=== PATIENT | male | born 1960 | race Caucasian/White ===

== ENCOUNTER 2021-12-10 07:54 | Inpatient (IN) | payer MEDICARE, OTHER, SELFPAY ==
[2021-12-10] MEDS ORDERED: Ondansetron ODT 4 MG TAB PO PRN (08:36)
[2021-12-10] MEDS ORDERED: Acetaminophen 325 MG TAB PO PRN (08:36)
[2021-12-10] MEDS ORDERED: Bisacodyl 5 MG TAB PO PRN (08:36)
[2021-12-10] MEDS ORDERED: Senokot S 8.6-50 MG TAB PO PRN (08:36)
[2021-12-10] MEDS ORDERED: Ondansetron PF 4 MG/2 ML Vial IVP PRN (08:36)
[2021-12-10] MEDS ORDERED: Lorazepam 2 MG/ML VIAL IM PRN (08:36)
[2021-12-10] MEDS ORDERED: Lorazepam 1 MG TAB PO PRN ×2 (08:36→14:57)
[2021-12-10] MEDS ORDERED: Electrolyte Replacement Protocol 1 EACH FS SCH (08:45)
[2021-12-10] MEDS ORDERED: HumaLOG 300 UNITS/3 ML VIAL SC PRN (08:52)
[2021-12-10] MEDS ORDERED: Dextrose 5% in Water 1,000 ML IV PRN (08:52)
[2021-12-10] MEDS ORDERED: Dextrose 50% Abboject 50 ML SYRINGE SLOW IVP PRN (08:52)
[2021-12-10 08:54] VITALS: BMI 18.3
[2021-12-10] MEDS ORDERED: Folic Acid 1 MG TAB PO SCH (09:00)
[2021-12-10] MEDS ORDERED: Nicotine 14 MG PATCH TD SCH (09:00)
[2021-12-10] MEDS ORDERED: Sodium Chloride 0.9% 1,000 ML IV SCH (09:15)
[2021-12-10 09:21] LABS: ALT (SGPT) 10 U/L (8-55); AST (SGOT) 14 U/L (5-34); Albumin 4.3 g/dL (3.4-4.8); Alcohol Less than 10 mg/dL (Less than 10); Alkaline Phosphatase 108 U/L (40-110); Anion Gap 17 mmol/L (10-20); BUN (Urea Nitrogen) 9 mg/dL (8.4-25.7); Bilirubin, Total 0.5 mg/dL (0.2-1.2); Calc. Creatinine Clearance 62 mL/min (70-130); Calcium 9.8 mg/dL (7.8-10.44); Carbon Dioxide 21 mmol/L (23-31); Chloride 93 mmol/L (98-107); Globulin 4.2 g/dL (2.4-3.5); Glucose 171 mg/dL (80-115); Magnesium 1.2 mg/dL (1.6-2.6); Phosphorus 3.4 mg/dL (2.3-4.7); Potassium 4.1 mmol/L (3.5-5.1); Protein, Total 8.5 g/dL (5.8-8.1); Sodium 127 mmol/L (136-145)
[2021-12-10] MEDS ORDERED: Nicotine 21 MG PATCH TD SCH (09:30)
[2021-12-10] MEDS ORDERED: Metoprolol Tartrate 50 MG TAB PO SCH (09:30)
[2021-12-10] MEDS ORDERED: LOSARTAN POTASSIUM 100 MG PO SCH (10:00)
[2021-12-10] MEDS: Enoxaparin Sodium 30 MG/0.3 ML SYRINGE SC SCH (10:55)
[2021-12-10] MEDS: Lorazepam 1 MG TAB PO SCH ×2 (10:57→16:28)
[2021-12-10] MEDS: Multivit, Therapeutic 1 TAB PO SCH (10:57)
[2021-12-10] MEDS: Thiamine HCl 200 MG/2 ML VIAL SLOW IVP SCH (10:57)
[2021-12-10 11:13] LABS: Iron 17 ug/dL (65-175); Iron Binding Capacity, Total 476 mcg/dL (261-462)
[2021-12-10 11:39] LABS: Ferritin 7.07 ng/mL (22-322)
[2021-12-10] MEDS: HumaLOG 300 UNITS/3 ML VIAL SC PRN ×2 (13:09→18:22)
[2021-12-10] MEDS: Labetalol HCl 100 MG/20 ML VIAL SLOW IVP PRN (13:11)
[2021-12-10] MEDS: Ferrous Sulfate 325 MG TAB PO SCH (18:22)
[2021-12-10 22:57] LABS: Amphetamine Not Detected (NotDetected); Barbiturates Screen Not Detected (NotDetected); Benzodiazepine Screen Not Detected (NotDetected); Cocaine Metabolite Screen Not Detected (NotDetected); Methadone Not Detected (NotDetected); Methamphetamine Not Detected (NotDetected); Opiate Screen Not Detected (NotDetected); Oxycodone Screen Not Detected (NotDetected); Phencyclidine (PCP) Not Detected (NotDetected); THC/Cannabinoid Screen Detected (NotDetected); Tricyclic Screen Not Detected (NotDetected)
[2021-12-11 04:55] LABS: #Basophils 0.1 thou/uL (0.0-0.2); #Eosinphils 0.1 thou/uL (0.0-0.7); #Monocytes 0.9 thou/uL (0.11-0.59); %Eosinophils 1.3 % (0.0-10.0); %Lymphocytes 21.7 % (21.0-51.0); %Monocytes 9.7 % (0.0-10.0); %Neutrophils 66.3 % (42.0-75.0); Mean Corpuscular HGB CONC 31.5 g/dL (32.0-36.0); Mean Corpuscular Hemoglobin 23.8 pg (27.0-31.0); Mean Corpuscular Volume 75.4 fL (78.0-98.0); Mean Platelet Volume 7.1 fL (7.4-10.4); Platelet Count 500 thou/uL (130-400); RBC Distribution Width 18.4 % (11.5-14.5); Red Blood Cell (RBC) Count 4.23 mill/uL (4.70-6.10); White Blood Cell (WBC) Count 9.1 thou/uL (4.8-10.8)
[2021-12-11 05:16] LABS: ALT (SGPT) 8 U/L (8-55); AST (SGOT) 18 U/L (5-34); Albumin 3.9 g/dL (3.4-4.8); Alkaline Phosphatase 96 U/L (40-110); Anion Gap 16 mmol/L (10-20); BUN (Urea Nitrogen) 20 mg/dL (8.4-25.7); Bilirubin, Total 0.5 mg/dL (0.2-1.2); Calc. Creatinine Clearance 52 mL/min (70-130); Calcium 9.6 mg/dL (7.8-10.44); Carbon Dioxide 22 mmol/L (23-31); Chloride 94 mmol/L (98-107); Glucose 159 mg/dL (80-115); Potassium 4.2 mmol/L (3.5-5.1); Protein, Total 7.9 g/dL (5.8-8.1); Sodium 128 mmol/L (136-145)
[2021-12-11] MEDS: HumaLOG 300 UNITS/3 ML VIAL SC PRN (05:55)
[2021-12-11] MEDS ORDERED: Lorazepam 1 MG TAB PO PRN (08:36)
[2021-12-11] MEDS ORDERED: Non-Formulary Item 1 EACH (Losartan Potassium [Losartan Potassium] 100 MG Tablet) PO SCH (09:00)
[2021-12-11] MEDS: Ferrous Sulfate 325 MG TAB PO SCH ×2 (10:19→17:55)
[2021-12-11] MEDS: Enoxaparin Sodium 30 MG/0.3 ML SYRINGE SC SCH (10:19)
[2021-12-11] MEDS: Multivit, Therapeutic 1 TAB PO SCH (10:20)
[2021-12-11] MEDS: Metoprolol Tartrate 50 MG TAB PO SCH (10:20)
[2021-12-11] MEDS: Sodium Chloride 1 GM TAB PO SCH ×3 (10:20→21:33)
[2021-12-11] MEDS: Losartan 25 MG TAB PO SCH (10:21)
[2021-12-11] MEDS: Folic Acid 1 MG TAB PO SCH (10:21)
[2021-12-11] MEDS: Nicotine 21 MG PATCH TD SCH (10:21)
[2021-12-11 11:00] LABS: Syphilis Antibody Nonreactive (Nonreactive); Syphilis Antibody Index 0.12 S/CO (<1.00 Non-Reactive)
[2021-12-11] MEDS: Thiamine HCl 200 MG/2 ML VIAL SLOW IVP SCH (17:55)
[2021-12-11] MEDS: Labetalol HCl 100 MG/20 ML VIAL SLOW IVP PRN (21:32)
[2021-12-11] MEDS ORDERED: Melatonin 3 MG TAB PO SCH (23:15)
[2021-12-12] MEDS: hydrALAZINE 20 MG/ML VIAL SLOW IVP PRN ×2 (04:31→16:32)
[2021-12-12 04:49] LABS: Anion Gap 15 mmol/L (10-20); BUN (Urea Nitrogen) 16 mg/dL (8.4-25.7); Calc. Creatinine Clearance 67 mL/min (70-130); Calcium 9.3 mg/dL (7.8-10.44); Carbon Dioxide 19 mmol/L (23-31); Chloride 95 mmol/L (98-107); Glucose 153 mg/dL (80-115); Potassium 4.4 mmol/L (3.5-5.1); Sodium 125 mmol/L (136-145)
[2021-12-12] MEDS ORDERED: Lorazepam 1 MG TAB PO PRN (08:36)
[2021-12-12] MEDS ORDERED: Lorazepam 0.5 MG TAB PO PRN (08:36)
[2021-12-12] MEDS: Ferrous Sulfate 325 MG TAB PO SCH ×2 (08:39→16:00)
[2021-12-12] MEDS: Sodium Chloride 1 GM TAB PO SCH ×3 (08:39→20:07)
[2021-12-12] MEDS: Metoprolol Tartrate 50 MG TAB PO SCH (08:39)
[2021-12-12] MEDS: Folic Acid 1 MG TAB PO SCH (08:39)
[2021-12-12] MEDS: Losartan 25 MG TAB PO SCH (08:39)
[2021-12-12] MEDS: Multivit, Therapeutic 1 TAB PO SCH (08:39)
[2021-12-12] MEDS: Enoxaparin Sodium 30 MG/0.3 ML SYRINGE SC SCH (08:39)
[2021-12-12] MEDS: Nicotine 21 MG PATCH TD SCH (08:40)
[2021-12-12] MEDS: HYDROcodone/Acetaminophen 5/325 mg Tablet PO PRN ×2 (08:42→18:47)
[2021-12-12] MEDS ORDERED: Lorazepam 0.5 MG TAB PO SCH (08:45)
[2021-12-12] MEDS: Thiamine HCl 200 MG/2 ML VIAL SLOW IVP SCH (08:45)
[2021-12-12] MEDS ORDERED: metFORMIN 500 MG TAB PO SCH (09:00)
[2021-12-12] MEDS ORDERED: Amlodipine 5 MG TAB PO SCH (11:15)
[2021-12-12] MEDS: HumaLOG 300 UNITS/3 ML VIAL SC PRN (11:46)
[2021-12-13 04:54] LABS: Anion Gap 14 mmol/L (10-20); BUN (Urea Nitrogen) 20 mg/dL (8.4-25.7); Calc. Creatinine Clearance 61 mL/min (70-130); Calcium 9.6 mg/dL (7.8-10.44); Carbon Dioxide 23 mmol/L (23-31); Chloride 96 mmol/L (98-107); Glucose 121 mg/dL (80-115); Potassium 4.5 mmol/L (3.5-5.1); Sodium 128 mmol/L (136-145)
[2021-12-13] MEDS: HumaLOG 300 UNITS/3 ML VIAL SC PRN ×2 (06:36→11:42)
[2021-12-13] MEDS ORDERED: Lorazepam 0.5 MG TAB PO PRN (08:36)
[2021-12-13] MEDS ORDERED: Amlodipine 5 MG TAB PO SCH ×2 (09:00)
[2021-12-13] MEDS ORDERED: Thiamine 100 MG TAB PO SCH (09:00)
[2021-12-13] MEDS: Losartan 25 MG TAB PO SCH (09:17)
[2021-12-13] MEDS: Ferrous Sulfate 325 MG TAB PO SCH (09:17)
[2021-12-13] MEDS: Sodium Chloride 1 GM TAB PO SCH (09:17)
[2021-12-13] MEDS: Multivit, Therapeutic 1 TAB PO SCH (09:17)
[2021-12-13] MEDS: Metoprolol Tartrate 50 MG TAB PO SCH (09:17)
[2021-12-13] MEDS: Enoxaparin Sodium 30 MG/0.3 ML SYRINGE SC SCH (09:17)
[2021-12-13] MEDS: Folic Acid 1 MG TAB PO SCH (09:17)
[2021-12-13] MEDS: Nicotine 21 MG PATCH TD SCH (09:18)
[2021-12-13 11:30] VITALS: BP 134/63; TEMP 97.9
== END 2021-12-13 11:55 | disposition home or self-care (01) | DRG 439 ==
LOC: 2NO 08:00 → INTOOBSV 08:00 → OBSVTOIN 12-11 15:20
PROVIDERS: ADMIT Internal Medicine; ATTEND Internal Medicine
DX: K86.0 Alcohol-induced chronic pancreatitis (principal); E87.1 Hypo-osmolality and hyponatremia; I10 Essential (primary) hypertension; I86.0 Sublingual varices; D64.9 Anemia, unspecified; K59.00 Constipation, unspecified; F10.10 Alcohol abuse, uncomplicated; E78.5 Hyperlipidemia, unspecified; E11.9 Type 2 diabetes mellitus without complications; Z79.84 Long term (current) use of oral hypoglycemic drugs; Z79.899 Other long term (current) drug therapy
CPT/HCPCS: 36415; 36416; 80048; 80053; 80306; 80307; 82140; 82533; 82607; 82728; 82746; 83540; 83550; 83735; 83930; 83935; 84100; 84300; 84443; 84550; 85025; 86780; 93005; 93010; 96372; 96374; G0378; J0360; J1650; J1815; J3411

== ENCOUNTER 2022-01-08 12:08 | Outpatient (CLI) | payer OTHER ==
[2022-01-08 13:03] LABS: RBC Distribution Width 25.9 % (11.5-14.5)
[2022-01-08 13:04] LABS: #Basophils 0.1 10x3/uL (0.0-0.2); #Eosinphils 0.1 10x3/uL (0.0-0.5); #Monocytes 0.6 10x3/uL (0.0-1.1); #Neutrophils 4.3 10x3/uL (1.5-8.4); %Basophils 0.8 % (0.0-2.0); %Eosinophils 1.1 % (0.0-6.0); %Lymphocytes 21.1 % (18.0-47.0); %Monocytes 9.9 % (0.0-10.0); %Neutrophils 66.8 % (40.0-75.0); Hemoglobin 11.8 g/dL (13.5-17.5); Mean Corpuscular HGB CONC 31.7 g/dL (32.0-36.0); Mean Corpuscular Hemoglobin 25.1 pg (27.0-33.0); Mean Corpuscular Volume 79.1 fl (81.2-95.1); Mean Platelet Volume 9.5 fl (7.4-10.4); Platelet Count 319 10x3/uL (150-450); White Blood Cell (WBC) Count 6.4 10x3/uL (3.5-10.5)
[2022-01-08 13:29] LABS: ALT (SGPT) 9 U/L (8-55); AST (SGOT) 14 U/L (5-34); Albumin 4.3 g/dL (3.4-4.8); Alkaline Phosphatase 94 U/L (40-110); Anion Gap 2 mmol/L (10-20); BUN (Urea Nitrogen) 18 mg/dL (8.4-25.7); Bilirubin, Total 0.4 mg/dL (0.2-1.2); Calc. Creatinine Clearance 0 mL/min (70-130); Calcium 9.9 mg/dL (7.8-10.44); Carbon Dioxide 27 mmol/L (23-31); Chloride 85 mmol/L (98-107); Estimated GFR 64; Globulin 3.5 g/dL (2.4-3.5); Glucose 240 mg/dL (80-115); Potassium 3.5 mmol/L (3.5-5.1); Protein, Total 7.8 g/dL (5.8-8.1)
[2022-01-08 13:33] LABS: Sodium 110 mmol/L (136-145)
[2022-01-08 13:39] LABS: Anisocytosis MODERATE=16-30 cells (100X) (0-5/hpf)
[2022-01-08 13:40] LABS: Microcytosis SLIGHT = 6-15 cells (100X) (0-5/hpf); Platelet Morphology Comment Appears Adequate
== END 2022-01-08 12:09 | disposition home or self-care (01) ==
LOC: LABBT 12:08
PROVIDERS: ATTEND Internal Medicine Cardiovascular Disease
DX: Z01.812 Encounter for preprocedural laboratory examination (principal); I77.1 Stricture of artery; Z20.822 Contact with and (suspected) exposure to COVID-19
CPT/HCPCS: 71250; 80053; 85025; 85347; 87811; 93460; 99152; 99153; J1644; J2001; J2250; J2720; J3010

== ENCOUNTER 2022-01-09 05:53 | Inpatient (IN) | payer OTHER ==
[2022-01-09] MEDS ORDERED: Heparin 10,000 UNITS/ 10 ML VIAL ONE (06:16)
[2022-01-09] MEDS ORDERED: Lidocaine 1% (PF) 30 ML VIAL ONE (06:16)
[2022-01-09] MEDS ORDERED: Protamine Sulfate 50 MG/5 ML VIAL ONE (06:16)
[2022-01-09] MEDS ORDERED: Fentanyl 100 MCG/2 ML VIAL ONE (06:32)
[2022-01-09] MEDS ORDERED: Midazolam HCl 2 mg/2 ml Vial ONE (06:33)
[2022-01-09] MEDS ORDERED: Ondansetron PF 4 MG/2 ML Vial IVP PRN (08:37)
[2022-01-09] MEDS ORDERED: Acetaminophen/Codeine 30-300mg Tablet PO PRN ×2 (08:42)
[2022-01-09] MEDS ORDERED: Sodium Chloride 0.9% 200 ML IV PRN (08:42)
[2022-01-09] MEDS ORDERED: Nitroglycerin 0.4 MG TAB (25 Tab Bottle) SL PRN (08:42)
[2022-01-09] MEDS ORDERED: Sodium Chloride 0.9% 1,000 ML IV SCH (08:45)
[2022-01-09] MEDS ORDERED: Amlodipine 5 MG TAB ONE (09:08)
[2022-01-09] MEDS ORDERED: Iopamidol 370 76% 100 ML VIAL ONE (09:24)
[2022-01-09] MEDS ORDERED: Iopamidol 370 76% 50 ML VIAL FS ONE (09:24)
[2022-01-09] MEDS: Losartan 25 MG TAB PO SCH (15:38)
[2022-01-09] MEDS: Amlodipine 5 MG TAB PO SCH (15:38)
[2022-01-09] MEDS: Aspirin 81 mg Enteric Coated Tablet PO SCH (15:38)
[2022-01-09] MEDS: Sodium Chloride 1 GM TAB PO SCH ×2 (15:39→20:59)
[2022-01-09] MEDS: Atorvastatin Calcium 40 MG TAB PO SCH (20:59)
[2022-01-10 04:45] LABS: Anion Gap 15 mmol/L (10-20); BUN (Urea Nitrogen) 13 mg/dL (8.4-25.7); Calc. Creatinine Clearance 65 mL/min (70-130); Calcium 9.5 mg/dL (7.8-10.44); Carbon Dioxide 23 mmol/L (23-31); Chloride 97 mmol/L (98-107); Estimated GFR 99; Glucose 154 mg/dL (80-115); Potassium 3.8 mmol/L (3.5-5.1); Sodium 131 mmol/L (136-145)
[2022-01-10] MEDS: Ferrous Sulfate 325 MG TAB PO SCH (09:34)
[2022-01-10] MEDS: Losartan 25 MG TAB PO SCH (09:34)
[2022-01-10] MEDS: Sodium Chloride 1 GM TAB PO SCH ×3 (09:35→20:33)
[2022-01-10] MEDS: Amlodipine 5 MG TAB PO SCH (09:35)
[2022-01-10] MEDS: Aspirin 81 mg Enteric Coated Tablet PO SCH (09:35)
[2022-01-10] MEDS ORDERED: Dextrose 5% in Water 1,000 ML IV PRN (15:00)
[2022-01-10] MEDS ORDERED: Dextrose 50% Abboject 50 ML SYRINGE IVP PRN (15:00)
[2022-01-10 16:29] LABS: SARS-CoV-2 NAA Rapid Test Not Detected (NotDetected)
[2022-01-10] MEDS: Acetaminophen 325 MG TAB PO PRN (17:03)
[2022-01-10] MEDS: HumaLOG 300 UNITS/3 ML VIAL SC PRN ×2 (17:03→20:30)
[2022-01-10] MEDS: Atorvastatin Calcium 40 MG TAB PO SCH (20:33)
[2022-01-11] MEDS: HumaLOG 300 UNITS/3 ML VIAL SC PRN ×3 (06:29→20:27)
[2022-01-11] MEDS: Losartan 25 MG TAB PO SCH (09:25)
[2022-01-11] MEDS: Aspirin 81 mg Enteric Coated Tablet PO SCH (09:25)
[2022-01-11] MEDS: Amlodipine 5 MG TAB PO SCH (09:25)
[2022-01-11] MEDS: Sodium Chloride 1 GM TAB PO SCH ×3 (09:25→20:33)
[2022-01-11] MEDS: Ferrous Sulfate 325 MG TAB PO SCH (09:25)
[2022-01-11] MEDS: Atorvastatin Calcium 40 MG TAB PO SCH (20:27)
[2022-01-12] MEDS: HumaLOG 300 UNITS/3 ML VIAL SC PRN ×3 (05:53→17:25)
[2022-01-12] MEDS ORDERED: metFORMIN 500 MG TAB PO SCH (08:00)
[2022-01-12 08:39] VITALS: BMI 18.6
[2022-01-12] MEDS: Ferrous Sulfate 325 MG TAB PO SCH (08:50)
[2022-01-12] MEDS: Amlodipine 5 MG TAB PO SCH (08:50)
[2022-01-12] MEDS: Sodium Chloride 1 GM TAB PO SCH ×2 (08:51→15:10)
[2022-01-12] MEDS: Losartan 25 MG TAB PO SCH (08:51)
[2022-01-12] MEDS: Aspirin 81 mg Enteric Coated Tablet PO SCH (08:51)
[2022-01-12 11:57] VITALS: TEMP 97.7
[2022-01-12] MEDS: Acetaminophen 325 MG TAB PO PRN ×2 (13:50→17:56)
[2022-01-12 15:40] VITALS: BP 140/81
== END 2022-01-12 19:00 | disposition short-term general hospital (02) | DRG 287 ==
LOC: SDC 05:53 → 2NO 08:13
PROVIDERS: ADMIT Internal Medicine Cardiovascular Disease; ATTEND Internal Medicine Cardiovascular Disease
PROC: 4A023N8 Measurement of Cardiac Sampling and Pressure, Bilateral, Percutaneous Approach (ICD-10-PCS; principal; 2022-01-09)
PROC: B2111ZZ Fluoroscopy of Multiple Coronary Arteries using Low Osmolar Contrast (ICD-10-PCS; 2022-01-09)
PROC: B2161ZZ Fluoroscopy of Right and Left Heart using Low Osmolar Contrast (ICD-10-PCS; 2022-01-09)
PROC: B3101ZZ Fluoroscopy of Thoracic Aorta using Low Osmolar Contrast (ICD-10-PCS; 2022-01-09)
PROC: B41D1ZZ Fluoroscopy of Aorta and Bilateral Lower Extremity Arteries using Low Osmolar Contrast (ICD-10-PCS; 2022-01-09)
DX: Q23.1 Congenital insufficiency of aortic valve (principal); E87.1 Hypo-osmolality and hyponatremia; K86.1 Other chronic pancreatitis; Z20.822 Contact with and (suspected) exposure to COVID-19; F17.210 Nicotine dependence, cigarettes, uncomplicated; E78.00 Pure hypercholesterolemia, unspecified; I10 Essential (primary) hypertension; E11.9 Type 2 diabetes mellitus without complications; F10.10 Alcohol abuse, uncomplicated; I25.10 Atherosclerotic heart disease of native coronary artery without angina pectoris; I69.331 Monoplegia of upper limb following cerebral infarction affecting right dominant side; Z79.899 Other long term (current) drug therapy; Z79.84 Long term (current) use of oral hypoglycemic drugs; Z90.49 Acquired absence of other specified parts of digestive tract; Z98.52 Vasectomy status; Z79.82 Long term (current) use of aspirin; Z87.19 Personal history of other diseases of the digestive system; I77.1 Stricture of artery
CPT/HCPCS: 36415; 36416; 71250; 80048; 80053; 85025; 85347; 87811; 93460; 94760; 99152; 99153; C1751; C1769; J1644; J1815; J2001; J2250; J2720; J3010; Q9967; U0002

== ENCOUNTER 2022-04-06 02:45 | Inpatient (IN) | payer OTHER ==
[2022-04-06] MEDS ORDERED: Dextrose 50% Abboject 50 ML SYRINGE SLOW IVP PRN (04:01)
[2022-04-06] MEDS ORDERED: Dextrose 5% in Water 1,000 ML IV PRN (04:01)
[2022-04-06] MEDS ORDERED: Piperacillin/Tazobactam 3.375 GM in Sodium Chloride 0.9% 100 ML IVPB SCH ×2 (05:15→05:30)
[2022-04-06] MEDS ORDERED: Vancomycin 1 GM in Premix Bag 1 BAG IVPB SCH (06:00)
[2022-04-06] MEDS ORDERED: FLU VACC QS2022-23(6MOS UP)/PF 60 MCG/0.5 ML SYRINGE IM ONE (09:00)
[2022-04-06] MEDS ORDERED: Enoxaparin Sodium 40 MG/0.4 ML SYRINGE SC SCH (09:00)
[2022-04-06] MEDS: Amlodipine 5 MG TAB PO SCH (10:04)
[2022-04-06] MEDS: Aspirin Chewable 81 MG TAB PO SCH (10:04)
[2022-04-06] MEDS: Amiodarone 200 MG TAB PO SCH ×2 (10:04→22:56)
[2022-04-06] MEDS: Piperacillin/Tazobactam 3.375 GM in Sodium Chloride 0.9% 100 ML IVPB SCH ×2 (10:05→17:49)
[2022-04-06] MEDS: Sodium Chloride 1 GM TAB PO SCH ×4 (10:05→22:56)
[2022-04-06] MEDS ORDERED: Famotidine/PF 20 mg/2ml Vial SLOW IVP SCH ×2 (10:15→11:00)
[2022-04-06] MEDS ORDERED: Lidocaine 1% (PF) 30 ML VIAL ONE (12:44)
[2022-04-06] MEDS ORDERED: Heparin 1,000 UNITS/ML VIAL ONE (13:39)
[2022-04-06 13:52] LABS: RBC Count-Automated (BF) 145 /cu.mm; WBC/Nucleated-Auto (BF) 456 /cu.mm
[2022-04-06 14:06] LABS: Fluid, Protein 4.5 g/dL (Not Available)
[2022-04-06 14:09] LABS: Pleural Fluid, Amylase Less than 30 U/L (Not Available); Pleural Fluid, LDH 184 U/L (Not Available); Pleural Fluid, Protein 4.5 g/dL
[2022-04-06] MEDS: Furosemide 20 MG/2 ML VIAL SLOW IVP SCH (14:17)
[2022-04-06 14:18] LABS: Body Fluid Source Thoracentesis Fluid
[2022-04-06 14:19] LABS: BF Color Yellow; Clarity Clear (Clear); Tube # EDTA
[2022-04-06 14:20] LABS: BF Segmented Neutrophils 33 %; Cell Count Non Hematic 21 %; Eosinophils 1 %; Lymphocytes 45 %
[2022-04-06] MEDS: Vancomycin HCl 750 MG in Sodium Chloride 0.9% 250 ML 250 ML IVPB SCH (19:17)
[2022-04-06] MEDS: Famotidine/PF 20 mg/2ml Vial SLOW IVP SCH (22:55)
[2022-04-06] MEDS: Enoxaparin Sodium 40 MG/0.4 ML SYRINGE SC SCH (22:55)
[2022-04-06] MEDS: Melatonin 3 MG TAB PO SCH (22:55)
[2022-04-07] MEDS: Acetaminophen 325 MG TAB PO PRN ×3 (01:37→20:41)
[2022-04-07] MEDS: Piperacillin/Tazobactam 3.375 GM in Sodium Chloride 0.9% 100 ML IVPB SCH ×2 (01:54→08:36)
[2022-04-07 03:48] LABS: #Lymphocytes 0.9 thou/uL (1.20-3.40); #Monocytes 0.7 thou/uL (0.11-0.59); #Neutrophils 9.1 thou/uL (1.40-6.50); %Basophils 0.3 % (0.0-1.0); %Eosinophils 0.1 % (0.0-10.0); %Lymphocytes 8.8 % (21.0-51.0); %Monocytes 6.5 % (0.0-10.0); %Neutrophils 84.4 % (42.0-75.0); Mean Corpuscular HGB CONC 31.8 g/dL (32.0-36.0); Mean Corpuscular Hemoglobin 26.8 pg (27.0-31.0); Mean Corpuscular Volume 84.1 fL (78.0-98.0); Mean Platelet Volume 6.4 fL (7.4-10.4); Platelet Count 450 thou/uL (130-400); RBC Distribution Width 16.7 % (11.5-14.5); Red Blood Cell (RBC) Count 3.73 mill/uL (4.70-6.10); White Blood Cell (WBC) Count 10.7 thou/uL (4.8-10.8)
[2022-04-07 04:03] LABS: ALT (SGPT) Less than 7 U/L (8-55); AST (SGOT) 14 U/L (5-34); Albumin 2.5 g/dL (3.4-4.8); Alkaline Phosphatase 98 U/L (40-110); Anion Gap 14 mmol/L (10-20); BUN (Urea Nitrogen) 10 mg/dL (8.4-25.7); Bilirubin, Total 0.5 mg/dL (0.2-1.2); Calc. Creatinine Clearance 79 mL/min (70-130); Calcium 7.9 mg/dL (7.8-10.44); Carbon Dioxide 21 mmol/L (23-31); Chloride 93 mmol/L (98-107); Estimated GFR 103; Globulin 3.8 g/dL (2.4-3.5); Glucose 127 mg/dL (80-115); Magnesium 1.3 mg/dL (1.6-2.6); Protein, Total 6.3 g/dL (5.8-8.1); Sodium 125 mmol/L (136-145)
[2022-04-07 04:12] LABS: Potassium 2.8 mmol/L (3.5-5.1)
[2022-04-07] MEDS ORDERED: Electrolyte Replacement Protocol 1 EACH FS SCH (04:30)
[2022-04-07] MEDS: Potassium Chloride 20 MEQ in Premix Bag 1 BAG IVPB SCH ×4 (04:59→14:53)
[2022-04-07] MEDS ORDERED: Magnesium Sulfate In Water 4 GM in Premix Bag 1 BAG IVPB SCH (06:00)
[2022-04-07] MEDS: Furosemide 20 MG/2 ML VIAL SLOW IVP SCH ×2 (06:25→14:54)
[2022-04-07] MEDS: Vancomycin HCl 750 MG in Sodium Chloride 0.9% 250 ML 250 ML IVPB SCH ×2 (06:45→17:26)
[2022-04-07] MEDS: Amlodipine 5 MG TAB PO SCH (08:34)
[2022-04-07] MEDS: Amiodarone 200 MG TAB PO SCH ×2 (08:34→20:42)
[2022-04-07] MEDS: Aspirin Chewable 81 MG TAB PO SCH (08:34)
[2022-04-07] MEDS: Famotidine/PF 20 mg/2ml Vial SLOW IVP SCH ×2 (08:35→20:43)
[2022-04-07] MEDS: Sodium Chloride 1 GM TAB PO SCH ×4 (08:35→20:42)
[2022-04-07] MEDS: Insulin Glargine 30 UNITS/0.3 ML VIAL SC SCH (08:35)
[2022-04-07] MEDS ORDERED: Iron, Sodium Ferric Gluconate 250 MG in Sodium Chloride 0.9% 250 ML 250 ML IVPB SCH (12:00)
[2022-04-07] MEDS: HumaLOG 300 UNITS/3 ML VIAL SC PRN ×2 (17:26→20:43)
[2022-04-07 17:48] LABS: Vancomycin, Trough 13.8 ug/mL
[2022-04-07] MEDS: Melatonin 3 MG TAB PO SCH (20:42)
[2022-04-07] MEDS: Enoxaparin Sodium 40 MG/0.4 ML SYRINGE SC SCH (20:43)
[2022-04-08] MEDS ORDERED: Ibuprofen 200 MG TAB PO SCH (03:15)
[2022-04-08 03:59] LABS: ALT (SGPT) 7 U/L (8-55); AST (SGOT) 18 U/L (5-34); Albumin 2.7 g/dL (3.4-4.8); Alkaline Phosphatase 93 U/L (40-110); Anion Gap 10 mmol/L (10-20); BUN (Urea Nitrogen) 9 mg/dL (8.4-25.7); Bilirubin, Total 0.3 mg/dL (0.2-1.2); Calc. Creatinine Clearance 78 mL/min (70-130); Calcium 8.2 mg/dL (7.8-10.44); Carbon Dioxide 23 mmol/L (23-31); Chloride 96 mmol/L (98-107); Estimated GFR 103; Glucose 85 mg/dL (80-115); Potassium 3.4 mmol/L (3.5-5.1); Protein, Total 6.7 g/dL (5.8-8.1); Sodium 126 mmol/L (136-145)
[2022-04-08] MEDS: Furosemide 20 MG/2 ML VIAL SLOW IVP SCH ×2 (06:02→13:28)
[2022-04-08] MEDS: Vancomycin HCl 750 MG in Sodium Chloride 0.9% 250 ML 250 ML IVPB SCH (06:03)
[2022-04-08] MEDS ORDERED: Potassium Chloride 20 MEQ TAB PO SCH (08:00)
[2022-04-08] MEDS: Aspirin Chewable 81 MG TAB PO SCH (09:20)
[2022-04-08] MEDS: Amiodarone 200 MG TAB PO SCH ×2 (09:20→20:26)
[2022-04-08] MEDS: Amlodipine 5 MG TAB PO SCH (09:20)
[2022-04-08] MEDS: Famotidine/PF 20 mg/2ml Vial SLOW IVP SCH ×2 (09:20→20:26)
[2022-04-08] MEDS: Insulin Glargine 30 UNITS/0.3 ML VIAL SC SCH (09:21)
[2022-04-08] MEDS: Sodium Chloride 1 GM TAB PO SCH ×4 (09:21→20:27)
[2022-04-08 14:52] LABS: Potassium 3.6 mmol/L (3.5-5.1)
[2022-04-08] MEDS: Acetaminophen 325 MG TAB PO PRN ×2 (17:46→22:40)
[2022-04-08] MEDS: HumaLOG 300 UNITS/3 ML VIAL SC PRN (17:47)
[2022-04-08] MEDS: Enoxaparin Sodium 40 MG/0.4 ML SYRINGE SC SCH (20:27)
[2022-04-08] MEDS: Melatonin 3 MG TAB PO SCH (20:27)
[2022-04-08] MEDS: CEFAZOLIN 2 GM in Sodium Chloride 0.9% 100 ML IVPB SCH (22:11)
[2022-04-09 05:21] LABS: Vancomycin, Trough 9.4 ug/mL
[2022-04-09 05:23] LABS: Anion Gap 13 mmol/L (10-20); BUN (Urea Nitrogen) 4 mg/dL (8.4-25.7); Calc. Creatinine Clearance 84 mL/min (70-130); Carbon Dioxide 23 mmol/L (23-31); Chloride 97 mmol/L (98-107); Potassium 3.8 mmol/L (3.5-5.1); Sodium 129 mmol/L (136-145)
[2022-04-09 05:24] LABS: ALT (SGPT) Less than 7 U/L (8-55); AST (SGOT) 12 U/L (5-34); Albumin 2.8 g/dL (3.4-4.8); Alkaline Phosphatase 96 U/L (40-110); Bilirubin, Total 0.3 mg/dL (0.2-1.2); Calcium 8.1 mg/dL (7.8-10.44); Estimated GFR 105; Globulin 3.9 g/dL (2.4-3.5); Glucose 93 mg/dL (80-115); Protein, Total 6.7 g/dL (5.8-8.1)
[2022-04-09] MEDS: Furosemide 20 MG/2 ML VIAL SLOW IVP SCH ×2 (05:43→13:41)
[2022-04-09] MEDS: CEFAZOLIN 2 GM in Sodium Chloride 0.9% 100 ML IVPB SCH ×3 (05:43→22:17)
[2022-04-09] MEDS: Insulin Glargine 30 UNITS/0.3 ML VIAL SC SCH (08:39)
[2022-04-09] MEDS: Aspirin Chewable 81 MG TAB PO SCH (08:51)
[2022-04-09] MEDS: Amiodarone 200 MG TAB PO SCH ×2 (08:51→20:12)
[2022-04-09] MEDS: Amlodipine 5 MG TAB PO SCH (08:51)
[2022-04-09] MEDS: Sodium Chloride 1 GM TAB PO SCH ×4 (08:52→20:14)
[2022-04-09] MEDS: Famotidine/PF 20 mg/2ml Vial SLOW IVP SCH ×2 (08:52→20:10)
[2022-04-09] MEDS ORDERED: PROPOFOL 200 MG/20 ML VIAL ONE (11:08)
[2022-04-09] MEDS ORDERED: Lidocaine 1% PF 5 ML VIAL ONE (11:08)
[2022-04-09] MEDS: Acetaminophen 325 MG TAB PO PRN ×2 (13:41→20:11)
[2022-04-09 17:49] VITALS: BMI 18.8
[2022-04-09] MEDS: Enoxaparin Sodium 40 MG/0.4 ML SYRINGE SC SCH (20:10)
[2022-04-09] MEDS: Melatonin 3 MG TAB PO SCH (20:13)
[2022-04-09] MEDS: HumaLOG 300 UNITS/3 ML VIAL SC PRN (20:32)
[2022-04-10 04:28] LABS: ALT (SGPT) Less than 7 U/L (8-55); AST (SGOT) 14 U/L (5-34); Albumin 2.5 g/dL (3.4-4.8); Alkaline Phosphatase 91 U/L (40-110); Anion Gap 11 mmol/L (10-20); BUN (Urea Nitrogen) Less than 4 mg/dL (8.4-25.7); Bilirubin, Total 0.3 mg/dL (0.2-1.2); Calc. Creatinine Clearance 90 mL/min (70-130); Calcium 7.8 mg/dL (7.8-10.44); Carbon Dioxide 24 mmol/L (23-31); Chloride 95 mmol/L (98-107); Estimated GFR 107; Globulin 3.9 g/dL (2.4-3.5); Glucose 110 mg/dL (80-115); Potassium 3.1 mmol/L (3.5-5.1); Protein, Total 6.4 g/dL (5.8-8.1); Sodium 127 mmol/L (136-145)
[2022-04-10] MEDS: CEFAZOLIN 2 GM in Sodium Chloride 0.9% 100 ML IVPB SCH ×3 (04:53→20:32)
[2022-04-10] MEDS: Furosemide 20 MG/2 ML VIAL SLOW IVP SCH ×2 (04:54→14:07)
[2022-04-10] MEDS: Acetaminophen 325 MG TAB PO PRN ×3 (04:54→23:33)
[2022-04-10] MEDS ORDERED: Potassium Chloride 20 MEQ TAB PO SCH ×2 (08:00→14:00)
[2022-04-10] MEDS: Sodium Chloride 1 GM TAB PO SCH ×4 (08:13→20:32)
[2022-04-10] MEDS: Famotidine/PF 20 mg/2ml Vial SLOW IVP SCH ×2 (08:14→20:32)
[2022-04-10] MEDS: Amiodarone 200 MG TAB PO SCH ×2 (08:14→20:32)
[2022-04-10] MEDS: Amlodipine 5 MG TAB PO SCH (08:14)
[2022-04-10] MEDS: Insulin Glargine 30 UNITS/0.3 ML VIAL SC SCH (08:14)
[2022-04-10] MEDS: Aspirin Chewable 81 MG TAB PO SCH (08:14)
[2022-04-10] MEDS: Melatonin 3 MG TAB PO SCH (20:31)
[2022-04-10] MEDS: Enoxaparin Sodium 40 MG/0.4 ML SYRINGE SC SCH (20:32)
[2022-04-10] MEDS: Senokot S 8.6-50 MG TAB PO SCH (20:33)
[2022-04-11 04:28] LABS: ALT (SGPT) Less than 7 U/L (8-55); AST (SGOT) 13 U/L (5-34); Albumin 2.4 g/dL (3.4-4.8); Alkaline Phosphatase 93 U/L (40-110); Anion Gap 12 mmol/L (10-20); BUN (Urea Nitrogen) 5 mg/dL (8.4-25.7); Bilirubin, Total 0.2 mg/dL (0.2-1.2); Calc. Creatinine Clearance 91 mL/min (70-130); Calcium 8.1 mg/dL (7.8-10.44); Carbon Dioxide 23 mmol/L (23-31); Chloride 97 mmol/L (98-107); Estimated GFR 107; Globulin 4.3 g/dL (2.4-3.5); Glucose 120 mg/dL (80-115); Potassium 3.7 mmol/L (3.5-5.1); Protein, Total 6.7 g/dL (5.8-8.1); Sodium 128 mmol/L (136-145)
[2022-04-11] MEDS: CEFAZOLIN 2 GM in Sodium Chloride 0.9% 100 ML IVPB SCH (04:49)
[2022-04-11] MEDS: Furosemide 20 MG/2 ML VIAL SLOW IVP SCH ×2 (04:50→13:37)
[2022-04-11] MEDS: Acetaminophen 325 MG TAB PO PRN ×2 (06:12→13:37)
[2022-04-11] MEDS: Aspirin Chewable 81 MG TAB PO SCH (08:59)
[2022-04-11] MEDS: Rifampin 300 MG CAP PO SCH ×2 (08:59→23:45)
[2022-04-11] MEDS: Amlodipine 5 MG TAB PO SCH (09:00)
[2022-04-11] MEDS: Senokot S 8.6-50 MG TAB PO SCH ×2 (09:00→19:40)
[2022-04-11] MEDS: Famotidine/PF 20 mg/2ml Vial SLOW IVP SCH ×2 (09:00→19:41)
[2022-04-11] MEDS: Insulin Glargine 30 UNITS/0.3 ML VIAL SC SCH (09:00)
[2022-04-11] MEDS: Sodium Chloride 1 GM TAB PO SCH ×4 (09:00→19:40)
[2022-04-11] MEDS: Amiodarone 200 MG TAB PO SCH ×2 (09:00→19:40)
[2022-04-11] MEDS: Polyethylene Glycol 3350 17 GM Packet PO SCH (09:01)
[2022-04-11] MEDS: Oxacillin 2 GM in Sodium Chloride 0.9% 100 ML IVPB SCH ×4 (10:05→23:17)
[2022-04-11] MEDS: Melatonin 3 MG TAB PO SCH (19:40)
[2022-04-11] MEDS: Enoxaparin Sodium 40 MG/0.4 ML SYRINGE SC SCH (19:41)
[2022-04-12] MEDS: Oxacillin 2 GM in Sodium Chloride 0.9% 100 ML IVPB SCH ×6 (01:49→20:01)
[2022-04-12 03:51] LABS: #Basophils 0.1 thou/uL (0.0-0.2); #Eosinphils 0.1 thou/uL (0.0-0.7); #Lymphocytes 1.7 thou/uL (1.20-3.40); #Monocytes 0.9 thou/uL (0.11-0.59); #Neutrophils 9.8 thou/uL (1.40-6.50); %Basophils 0.6 % (0.0-1.0); %Eosinophils 0.5 % (0.0-10.0); %Lymphocytes 13.3 % (21.0-51.0); %Monocytes 6.8 % (0.0-10.0); %Neutrophils 78.8 % (42.0-75.0); Hemoglobin 11.2 g/dL (14.0-18.0); Mean Corpuscular HGB CONC 31.6 g/dL (32.0-36.0); Mean Corpuscular Volume 85.5 fL (78.0-98.0); Mean Platelet Volume 6.2 fL (7.4-10.4); Platelet Count 633 thou/uL (130-400); RBC Distribution Width 17.6 % (11.5-14.5); Red Blood Cell (RBC) Count 4.15 mill/uL (4.70-6.10); White Blood Cell (WBC) Count 12.4 thou/uL (4.8-10.8)
[2022-04-12 04:06] LABS: ALT (SGPT) Less than 7 U/L (8-55); AST (SGOT) 12 U/L (5-34); Albumin 2.5 g/dL (3.4-4.8); Alkaline Phosphatase 101 U/L (40-110); Anion Gap 12 mmol/L (10-20); BUN (Urea Nitrogen) 6 mg/dL (8.4-25.7); Bilirubin, Total 0.5 mg/dL (0.2-1.2); Calc. Creatinine Clearance 85 mL/min (70-130); Carbon Dioxide 23 mmol/L (23-31); Chloride 97 mmol/L (98-107); Estimated GFR 107; Globulin 4.4 g/dL (2.4-3.5); Glucose 80 mg/dL (80-115); Magnesium 1.3 mg/dL (1.6-2.6); Protein, Total 6.9 g/dL (5.8-8.1); Sodium 129 mmol/L (136-145)
[2022-04-12] MEDS: Furosemide 20 MG/2 ML VIAL SLOW IVP SCH ×2 (05:51→13:29)
[2022-04-12] MEDS: Acetaminophen 325 MG TAB PO PRN ×3 (05:51→18:27)
[2022-04-12] MEDS ORDERED: Magnesium Sulfate In Water 4 GM in Premix Bag 1 BAG IVPB SCH (08:00)
[2022-04-12] MEDS ORDERED: Potassium Chloride 20 MEQ TAB PO SCH (08:00)
[2022-04-12] MEDS: Aspirin Chewable 81 MG TAB PO SCH (09:04)
[2022-04-12] MEDS: Senokot S 8.6-50 MG TAB PO SCH ×2 (09:04→20:06)
[2022-04-12] MEDS: Amiodarone 200 MG TAB PO SCH ×2 (09:05→20:04)
[2022-04-12] MEDS: Amlodipine 5 MG TAB PO SCH (09:05)
[2022-04-12] MEDS: Insulin Glargine 30 UNITS/0.3 ML VIAL SC SCH (09:05)
[2022-04-12] MEDS: Polyethylene Glycol 3350 17 GM Packet PO SCH ×2 (09:06→09:30)
[2022-04-12] MEDS: Famotidine/PF 20 mg/2ml Vial SLOW IVP SCH ×2 (09:06→20:08)
[2022-04-12] MEDS: Sodium Chloride 1 GM TAB PO SCH ×4 (09:07→20:06)
[2022-04-12] MEDS: Rifampin 300 MG CAP PO SCH ×2 (11:08→21:17)
[2022-04-12] MEDS: Melatonin 3 MG TAB PO SCH (20:05)
[2022-04-12] MEDS: Enoxaparin Sodium 40 MG/0.4 ML SYRINGE SC SCH (20:07)
[2022-04-13] MEDS: Oxacillin 2 GM in Sodium Chloride 0.9% 100 ML IVPB SCH ×6 (02:17→20:39)
[2022-04-13 04:22] LABS: #Eosinphils 0.1 thou/uL (0.0-0.7); #Lymphocytes 1.6 thou/uL (1.20-3.40); #Monocytes 0.8 thou/uL (0.11-0.59); #Neutrophils 7.4 thou/uL (1.40-6.50); %Basophils 0.4 % (0.0-1.0); %Eosinophils 0.9 % (0.0-10.0); %Monocytes 7.9 % (0.0-10.0); %Neutrophils 74.8 % (42.0-75.0); Hemoglobin 11.2 g/dL (14.0-18.0); Mean Corpuscular HGB CONC 30.7 g/dL (32.0-36.0); Mean Corpuscular Hemoglobin 26.6 pg (27.0-31.0); Mean Corpuscular Volume 86.5 fL (78.0-98.0); Mean Platelet Volume 6.2 fL (7.4-10.4); Platelet Count 691 thou/uL (130-400); RBC Distribution Width 17.6 % (11.5-14.5); White Blood Cell (WBC) Count 9.9 thou/uL (4.8-10.8)
[2022-04-13 04:38] LABS: ALT (SGPT) Less than 7 U/L (8-55); AST (SGOT) 13 U/L (5-34); Albumin 2.4 g/dL (3.4-4.8); Alkaline Phosphatase 102 U/L (40-110); Anion Gap 12 mmol/L (10-20); BUN (Urea Nitrogen) 5 mg/dL (8.4-25.7); Bilirubin, Total 0.6 mg/dL (0.2-1.2); Calc. Creatinine Clearance 85 mL/min (70-130); Calcium 7.9 mg/dL (7.8-10.44); Carbon Dioxide 23 mmol/L (23-31); Chloride 96 mmol/L (98-107); Estimated GFR 107; Globulin 4.4 g/dL (2.4-3.5); Glucose 79 mg/dL (80-115); Magnesium 1.6 mg/dL (1.6-2.6); Protein, Total 6.8 g/dL (5.8-8.1); Sodium 128 mmol/L (136-145)
[2022-04-13 04:42] LABS: Phosphorus 2.8 mg/dL (2.3-4.7)
[2022-04-13] MEDS: Furosemide 20 MG/2 ML VIAL SLOW IVP SCH ×2 (05:57→13:53)
[2022-04-13] MEDS ORDERED: Potassium Chloride 20 MEQ TAB PO SCH (08:00)
[2022-04-13] MEDS ORDERED: Magnesium 2 GM/50 ML(in water) 2 GM in Premix Bag 1 BAG IVPB SCH (08:00)
[2022-04-13] MEDS: Senokot S 8.6-50 MG TAB PO SCH ×2 (09:15→20:37)
[2022-04-13] MEDS: Rifampin 300 MG CAP PO SCH ×2 (09:15→22:56)
[2022-04-13] MEDS: Aspirin Chewable 81 MG TAB PO SCH (09:16)
[2022-04-13] MEDS: Amiodarone 200 MG TAB PO SCH ×2 (09:16→20:38)
[2022-04-13] MEDS: Sodium Chloride 1 GM TAB PO SCH ×4 (09:16→20:38)
[2022-04-13] MEDS: Amlodipine 5 MG TAB PO SCH (09:17)
[2022-04-13] MEDS: Polyethylene Glycol 3350 17 GM Packet PO SCH (09:18)
[2022-04-13] MEDS: Famotidine/PF 20 mg/2ml Vial SLOW IVP SCH ×2 (09:18→20:38)
[2022-04-13] MEDS: Insulin Glargine 30 UNITS/0.3 ML VIAL SC SCH ×2 (09:18→09:24)
[2022-04-13] MEDS: Acetaminophen 325 MG TAB PO PRN ×2 (10:13→17:33)
[2022-04-13] MEDS: HumaLOG 300 UNITS/3 ML VIAL SC PRN (17:33)
[2022-04-13] MEDS: Enoxaparin Sodium 40 MG/0.4 ML SYRINGE SC SCH (20:37)
[2022-04-13] MEDS: Melatonin 3 MG TAB PO SCH (20:37)
[2022-04-14] MEDS: Oxacillin 2 GM in Sodium Chloride 0.9% 100 ML IVPB SCH ×6 (01:30→21:09)
[2022-04-14] MEDS: Furosemide 20 MG/2 ML VIAL SLOW IVP SCH ×2 (05:30→13:43)
[2022-04-14] MEDS: Rifampin 300 MG CAP PO SCH ×2 (08:55→21:07)
[2022-04-14] MEDS: Amiodarone 200 MG TAB PO SCH ×2 (08:55→21:08)
[2022-04-14] MEDS: Sodium Chloride 1 GM TAB PO SCH ×4 (08:56→21:08)
[2022-04-14] MEDS: Amlodipine 5 MG TAB PO SCH (08:56)
[2022-04-14] MEDS: Famotidine/PF 20 mg/2ml Vial SLOW IVP SCH ×2 (08:56→21:08)
[2022-04-14] MEDS: Aspirin Chewable 81 MG TAB PO SCH (08:56)
[2022-04-14] MEDS: Senokot S 8.6-50 MG TAB PO SCH ×2 (08:56→21:08)
[2022-04-14] MEDS: Insulin Glargine 30 UNITS/0.3 ML VIAL SC SCH (08:57)
[2022-04-14] MEDS: Polyethylene Glycol 3350 17 GM Packet PO SCH (08:57)
[2022-04-14 09:15] LABS: #Eosinphils 0.1 thou/uL (0.0-0.7); #Lymphocytes 1.3 thou/uL (1.20-3.40); #Monocytes 0.6 thou/uL (0.11-0.59); #Neutrophils 6.7 thou/uL (1.40-6.50); %Basophils 0.5 % (0.0-1.0); %Eosinophils 0.6 % (0.0-10.0); %Lymphocytes 15.1 % (21.0-51.0); %Monocytes 6.8 % (0.0-10.0); Hemoglobin 11.3 g/dL (14.0-18.0); Mean Corpuscular HGB CONC 30.6 g/dL (32.0-36.0); Mean Corpuscular Hemoglobin 26.6 pg (27.0-31.0); Mean Corpuscular Volume 87.1 fL (78.0-98.0); Mean Platelet Volume 6.2 fL (7.4-10.4); Platelet Count 732 thou/uL (130-400); RBC Distribution Width 17.8 % (11.5-14.5); Red Blood Cell (RBC) Count 4.26 mill/uL (4.70-6.10); White Blood Cell (WBC) Count 8.7 thou/uL (4.8-10.8)
[2022-04-14 09:31] LABS: ALT (SGPT) Less than 7 U/L (8-55); AST (SGOT) 12 U/L (5-34); Albumin 2.4 g/dL (3.4-4.8); Alkaline Phosphatase 114 U/L (40-110); Anion Gap 15 mmol/L (10-20); BUN (Urea Nitrogen) 6 mg/dL (8.4-25.7); Bilirubin, Total 0.6 mg/dL (0.2-1.2); Calc. Creatinine Clearance 72 mL/min (70-130); Calcium 8.3 mg/dL (7.8-10.44); Carbon Dioxide 22 mmol/L (23-31); Chloride 94 mmol/L (98-107); Estimated GFR 102; Globulin 4.7 g/dL (2.4-3.5); Glucose 141 mg/dL (80-115); Magnesium 1.6 mg/dL (1.6-2.6); Potassium 3.8 mmol/L (3.5-5.1); Protein, Total 7.1 g/dL (5.8-8.1); Sodium 127 mmol/L (136-145)
[2022-04-14] MEDS ORDERED: Magnesium 2 GM/50 ML(in water) 2 GM in Premix Bag 1 BAG IVPB SCH (10:30)
[2022-04-14] MEDS: HumaLOG 300 UNITS/3 ML VIAL SC PRN (11:40)
[2022-04-14] MEDS: Acetaminophen 325 MG TAB PO PRN (19:31)
[2022-04-14] MEDS ORDERED: Enoxaparin Sodium 30 MG/0.3 ML SYRINGE SC SCH (21:00)
[2022-04-14] MEDS: Melatonin 3 MG TAB PO SCH (21:07)
[2022-04-15] MEDS: Oxacillin 2 GM in Sodium Chloride 0.9% 100 ML IVPB SCH ×6 (02:46→20:36)
[2022-04-15] MEDS: Furosemide 20 MG/2 ML VIAL SLOW IVP SCH ×2 (05:46→13:54)
[2022-04-15 05:48] LABS: BUN (Urea Nitrogen) 7 mg/dL (8.4-25.7); Calc. Creatinine Clearance 76 mL/min (70-130); Calcium 8.2 mg/dL (7.8-10.44); Carbon Dioxide 25 mmol/L (23-31); Chloride 92 mmol/L (98-107); Estimated GFR 104; Glucose 117 mg/dL (80-115); Potassium 3.3 mmol/L (3.5-5.1); Sodium 124 mmol/L (136-145)
[2022-04-15 05:53] LABS: Anion Gap 10 mmol/L (10-20)
[2022-04-15] MEDS: Potassium Chloride 20 MEQ TAB PO SCH ×2 (10:01→15:33)
[2022-04-15] MEDS: Amlodipine 5 MG TAB PO SCH (10:02)
[2022-04-15] MEDS: Amiodarone 200 MG TAB PO SCH ×2 (10:02→20:34)
[2022-04-15] MEDS: Insulin Glargine 30 UNITS/0.3 ML VIAL SC SCH (10:03)
[2022-04-15] MEDS: Famotidine/PF 20 mg/2ml Vial SLOW IVP SCH ×2 (10:03→20:36)
[2022-04-15] MEDS: Aspirin Chewable 81 MG TAB PO SCH (10:03)
[2022-04-15] MEDS: Senokot S 8.6-50 MG TAB PO SCH ×2 (10:05→20:35)
[2022-04-15] MEDS: Polyethylene Glycol 3350 17 GM Packet PO SCH (10:05)
[2022-04-15] MEDS: Acetaminophen 325 MG TAB PO PRN ×3 (10:06→20:35)
[2022-04-15] MEDS: Rifampin 300 MG CAP PO SCH ×2 (10:15→20:44)
[2022-04-15] MEDS: Sodium Chloride 1 GM TAB PO SCH ×4 (10:15→20:41)
[2022-04-15 10:38] LABS: Anion Gap 13 mmol/L (10-20); BUN (Urea Nitrogen) 6 mg/dL (8.4-25.7); Calc. Creatinine Clearance 72 mL/min (70-130); Carbon Dioxide 24 mmol/L (23-31); Chloride 92 mmol/L (98-107); Estimated GFR 102; Glucose 241 mg/dL (80-115); Potassium 3.3 mmol/L (3.5-5.1); Sodium 126 mmol/L (136-145)
[2022-04-15] MEDS ORDERED: Sodium Chloride 256 MEQ in Sterile Water Injection 936 ML IV SCH (11:00)
[2022-04-15] MEDS: Melatonin 3 MG TAB PO SCH (20:34)
[2022-04-15] MEDS ORDERED: Enoxaparin Sodium 40 MG/0.4 ML SYRINGE SC SCH (21:00)
[2022-04-16] MEDS: Oxacillin 2 GM in Sodium Chloride 0.9% 100 ML IVPB SCH ×6 (00:50→20:40)
[2022-04-16 04:55] LABS: #Eosinphils 0.1 thou/uL (0.0-0.7); #Lymphocytes 1.5 thou/uL (1.20-3.40); #Monocytes 0.6 thou/uL (0.11-0.59); #Neutrophils 5.3 thou/uL (1.40-6.50); %Basophils 0.5 % (0.0-1.0); %Eosinophils 0.9 % (0.0-10.0); %Lymphocytes 19.9 % (21.0-51.0); %Monocytes 8.1 % (0.0-10.0); %Neutrophils 70.7 % (42.0-75.0); Hemoglobin 10.8 g/dL (14.0-18.0); Mean Corpuscular HGB CONC 30.9 g/dL (32.0-36.0); Mean Corpuscular Hemoglobin 26.6 pg (27.0-31.0); Mean Corpuscular Volume 86.1 fL (78.0-98.0); Mean Platelet Volume 6.3 fL (7.4-10.4); Platelet Count 679 thou/uL (130-400); RBC Distribution Width 17.8 % (11.5-14.5); Red Blood Cell (RBC) Count 4.06 mill/uL (4.70-6.10); White Blood Cell (WBC) Count 7.5 thou/uL (4.8-10.8)
[2022-04-16 05:06] LABS: ALT (SGPT) Less than 7 U/L (8-55); AST (SGOT) 11 U/L (5-34); Albumin 2.4 g/dL (3.4-4.8); Alkaline Phosphatase 103 U/L (40-110); Anion Gap 11 mmol/L (10-20); BUN (Urea Nitrogen) 6 mg/dL (8.4-25.7); Bilirubin, Total 0.4 mg/dL (0.2-1.2); Calc. Creatinine Clearance 74 mL/min (70-130); Calcium 8.5 mg/dL (7.8-10.44); Carbon Dioxide 24 mmol/L (23-31); Chloride 97 mmol/L (98-107); Estimated GFR 103; Globulin 4.6 g/dL (2.4-3.5); Glucose 89 mg/dL (80-115); Potassium 4.1 mmol/L (3.5-5.1); Sodium 128 mmol/L (136-145)
[2022-04-16] MEDS: Furosemide 20 MG/2 ML VIAL SLOW IVP SCH ×2 (05:35→14:27)
[2022-04-16] MEDS: Fluticasone Propionate Nasal Spray 16 gm Bottle NASAL SCH (09:37)
[2022-04-16] MEDS: Rifampin 300 MG CAP PO SCH ×2 (09:39→20:21)
[2022-04-16] MEDS: Sodium Chloride 1 GM TAB PO SCH ×4 (09:40→20:22)
[2022-04-16] MEDS: Aspirin Chewable 81 MG TAB PO SCH (09:40)
[2022-04-16] MEDS: Amlodipine 5 MG TAB PO SCH (09:40)
[2022-04-16] MEDS: Lisinopril 10 MG TAB PO SCH (09:42)
[2022-04-16] MEDS: Amiodarone 200 MG TAB PO SCH ×2 (09:42→20:31)
[2022-04-16] MEDS: Insulin Glargine 30 UNITS/0.3 ML VIAL SC SCH (09:44)
[2022-04-16] MEDS: Famotidine/PF 20 mg/2ml Vial SLOW IVP SCH ×2 (09:47→20:22)
[2022-04-16] MEDS: Polyethylene Glycol 3350 17 GM Packet PO SCH (10:04)
[2022-04-16] MEDS: Senokot S 8.6-50 MG TAB PO SCH ×2 (10:04→20:20)
[2022-04-16] MEDS: HumaLOG 300 UNITS/3 ML VIAL SC PRN (12:29)
[2022-04-16] MEDS: Acetaminophen 325 MG TAB PO PRN ×2 (12:42→20:21)
[2022-04-16] MEDS: Melatonin 3 MG TAB PO SCH (20:22)
[2022-04-16] MEDS ORDERED: Enoxaparin Sodium 30 MG/0.3 ML SYRINGE SC SCH (21:00)
[2022-04-17] MEDS: Oxacillin 2 GM in Sodium Chloride 0.9% 100 ML IVPB SCH ×3 (00:32→09:56)
[2022-04-17 04:02] LABS: #Eosinphils 0.1 thou/uL (0.0-0.7); #Lymphocytes 1.4 thou/uL (1.20-3.40); #Monocytes 0.7 thou/uL (0.11-0.59); #Neutrophils 5.2 thou/uL (1.40-6.50); %Basophils 0.6 % (0.0-1.0); %Eosinophils 0.9 % (0.0-10.0); %Lymphocytes 18.5 % (21.0-51.0); %Monocytes 8.9 % (0.0-10.0); %Neutrophils 71.2 % (42.0-75.0); Hemoglobin 9.4 g/dL (14.0-18.0); Mean Corpuscular HGB CONC 30.6 g/dL (32.0-36.0); Mean Corpuscular Hemoglobin 26.4 pg (27.0-31.0); Mean Corpuscular Volume 86.5 fL (78.0-98.0); Platelet Count 670 thou/uL (130-400); RBC Distribution Width 17.8 % (11.5-14.5); Red Blood Cell (RBC) Count 3.55 mill/uL (4.70-6.10); White Blood Cell (WBC) Count 7.3 thou/uL (4.8-10.8)
[2022-04-17 04:27] LABS: ALT (SGPT) Less than 7 U/L (8-55); AST (SGOT) 10 U/L (5-34); Albumin 2.3 g/dL (3.4-4.8); Alkaline Phosphatase 95 U/L (40-110); Anion Gap 11 mmol/L (10-20); BUN (Urea Nitrogen) 9 mg/dL (8.4-25.7); Bilirubin, Total 0.3 mg/dL (0.2-1.2); Calc. Creatinine Clearance 55 mL/min (70-130); Calcium 8.1 mg/dL (7.8-10.44); Carbon Dioxide 24 mmol/L (23-31); Chloride 97 mmol/L (98-107); Estimated GFR 98; Globulin 4.1 g/dL (2.4-3.5); Glucose 107 mg/dL (80-115); Potassium 3.7 mmol/L (3.5-5.1); Protein, Total 6.4 g/dL (5.8-8.1); Sodium 128 mmol/L (136-145)
[2022-04-17] MEDS: Furosemide 20 MG/2 ML VIAL SLOW IVP SCH (06:10)
[2022-04-17] MEDS: Amlodipine 5 MG TAB PO SCH (09:32)
[2022-04-17] MEDS: Aspirin Chewable 81 MG TAB PO SCH (09:32)
[2022-04-17] MEDS: Amiodarone 200 MG TAB PO SCH (09:32)
[2022-04-17] MEDS: Senokot S 8.6-50 MG TAB PO SCH (09:33)
[2022-04-17] MEDS: Fluticasone Propionate Nasal Spray 16 gm Bottle NASAL SCH (09:33)
[2022-04-17] MEDS: Sodium Chloride 1 GM TAB PO SCH ×2 (09:33→13:46)
[2022-04-17] MEDS: Insulin Glargine 30 UNITS/0.3 ML VIAL SC SCH (09:33)
[2022-04-17] MEDS: Famotidine/PF 20 mg/2ml Vial SLOW IVP SCH (09:33)
[2022-04-17] MEDS: Lisinopril 10 MG TAB PO SCH (09:33)
[2022-04-17] MEDS: Polyethylene Glycol 3350 17 GM Packet PO SCH (09:34)
[2022-04-17] MEDS: Rifampin 300 MG CAP PO SCH (09:54)
[2022-04-17] MEDS ORDERED: Oxacillin 2 GM in Sodium Chloride 0.9% 100 ML IVPB SCH (13:00)
[2022-04-17 14:34] VITALS: BP 148/72; TEMP 97.2
== END 2022-04-17 14:20 | DRG 314 ==
LOC: IMCU/EMU 02:45 → 2NO 04-11 18:35
PROVIDERS: ADMIT Emergency Medicine; ATTEND Internal Medicine
PROC: 3E03329 Introduction of Other Anti-infective into Peripheral Vein, Percutaneous Approach (ICD-10-PCS; principal; 2022-04-06)
PROC: 5A09357 Assistance with Respiratory Ventilation, Less than 24 Consecutive Hours, Continuous Positive Airway Pressure (ICD-10-PCS; 2022-04-06)
PROC: 0W9B3ZZ Drainage of Left Pleural Cavity, Percutaneous Approach (ICD-10-PCS; 2022-04-06)
PROC: 0DP6XUZ Removal of Feeding Device from Stomach, External Approach (ICD-10-PCS; 2022-04-06)
PROC: B24BZZ4 Ultrasonography of Heart with Aorta, Transesophageal (ICD-10-PCS; 2022-04-09)
PROC: 02HV33Z Insertion of Infusion Device into Superior Vena Cava, Percutaneous Approach (ICD-10-PCS; 2022-04-13)
PROC: B5181ZA Fluoroscopy of Superior Vena Cava using Low Osmolar Contrast, Guidance (ICD-10-PCS; 2022-04-13)
PROC: B548ZZA Ultrasonography of Superior Vena Cava, Guidance (ICD-10-PCS; 2022-04-13)
PROC: 3E04329 Introduction of Other Anti-infective into Central Vein, Percutaneous Approach (ICD-10-PCS; 2022-04-13)
DX: T82.6XXA Infection and inflammatory reaction due to cardiac valve prosthesis, initial encounter (principal); Z20.822 Contact with and (suspected) exposure to COVID-19; A41.01 Sepsis due to Methicillin susceptible Staphylococcus aureus; G93.41 Metabolic encephalopathy; J96.01 Acute respiratory failure with hypoxia; I33.0 Acute and subacute infective endocarditis; K86.1 Other chronic pancreatitis; K94.23 Gastrostomy malfunction; K94.22 Gastrostomy infection; J91.8 Pleural effusion in other conditions classified elsewhere; Z16.23 Resistance to quinolones and fluoroquinolones; Z16.11 Resistance to penicillins; E22.2 Syndrome of inappropriate secretion of antidiuretic hormone; E78.5 Hyperlipidemia, unspecified; I10 Essential (primary) hypertension; E11.9 Type 2 diabetes mellitus without complications; I48.91 Unspecified atrial fibrillation; I25.10 Atherosclerotic heart disease of native coronary artery without angina pectoris; I08.3 Combined rheumatic disorders of mitral, aortic and tricuspid valves; Y83.3 Surgical operation with formation of external stoma as the cause of abnormal reaction of the patient, or of later complication, without mention of misadventure at the time of the procedure; R13.12 Dysphagia, oropharyngeal phase; K40.90 Unilateral inguinal hernia, without obstruction or gangrene, not specified as recurrent; F10.20 Alcohol dependence, uncomplicated; D50.9 Iron deficiency anemia, unspecified; Y83.1 Surgical operation with implant of artificial internal device as the cause of abnormal reaction of the patient, or of later complication, without mention of misadventure at the time of the procedure; Z28.21 Immunization not carried out because of patient refusal; Z86.73 Personal history of transient ischemic attack (TIA), and cerebral infarction without residual deficits; Z95.1 Presence of aortocoronary bypass graft; Z79.899 Other long term (current) drug therapy; Z79.82 Long term (current) use of aspirin; Z79.4 Long term (current) use of insulin; Z90.49 Acquired absence of other specified parts of digestive tract; Z98.890 Other specified postprocedural states; Z87.891 Personal history of nicotine dependence; Z98.52 Vasectomy status
CPT/HCPCS: 36415; 36416; 36569; 71045; 80048; 80053; 80170; 80202; 82150; 82945; 83615; 83735; 83880; 83930; 83935; 84100; 84157; 84300; 84478; 85025; 85060; 87040; 87070; 87077; 87086; 87116; 87149; 87186; 87205; 87206; 88112; 88305; 89051; 93306; 93312; 94660; A4217; C1751; J0690; J1580; J1644; J1650; J1815; J1940; J2543; J2700; J2704; J2916; J3370; J3475; J3480; J3490; J7050; S0028

== ENCOUNTER 2022-04-19 21:54 | Inpatient (IN) | payer OTHER ==
[~2022-04-19 21:54] MED LIST: Iopamidol 370 76% 100 ML VIAL ONE
[2022-04-19] MEDS ORDERED: Ondansetron PF 4 MG/2 ML Vial ONE (22:13)
[2022-04-19 22:45] LABS: #Lymphocytes 1.8 thou/uL (1.20-3.40); #Monocytes 0.7 thou/uL (0.11-0.59); #Neutrophils 9.1 thou/uL (1.40-6.50); %Basophils 0.3 % (0.0-1.0); %Eosinophils 0.2 % (0.0-10.0); %Lymphocytes 15.6 % (21.0-51.0); %Monocytes 6.2 % (0.0-10.0); %Neutrophils 77.7 % (42.0-75.0); Hemoglobin 7.7 g/dL (14.0-18.0); Mean Corpuscular HGB CONC 32.6 g/dL (32.0-36.0); Mean Corpuscular Hemoglobin 28.1 pg (27.0-31.0); Mean Corpuscular Volume 86.4 fL (78.0-98.0); Mean Platelet Volume 6.3 fL (7.4-10.4); Platelet Count 687 thou/uL (130-400); RBC Distribution Width 19.3 % (11.5-14.5); Red Blood Cell (RBC) Count 2.75 mill/uL (4.70-6.10); White Blood Cell (WBC) Count 11.6 thou/uL (4.8-10.8)
[2022-04-19 22:46] LABS: #Basophils 0.1 thou/uL (0.0-0.2); #Lymphocytes 1.6 thou/uL (1.20-3.40); #Monocytes 0.7 thou/uL (0.11-0.59); #Neutrophils 8.6 thou/uL (1.40-6.50); %Basophils 0.5 % (0.0-1.0); %Eosinophils 0.2 % (0.0-10.0); %Lymphocytes 14.6 % (21.0-51.0); %Monocytes 6.5 % (0.0-10.0); %Neutrophils 78.3 % (42.0-75.0); Mean Corpuscular HGB CONC 31.4 g/dL (32.0-36.0); Mean Corpuscular Hemoglobin 27.2 pg (27.0-31.0); Mean Corpuscular Volume 86.5 fL (78.0-98.0); Mean Platelet Volume 6.4 fL (7.4-10.4); Platelet Count 682 thou/uL (130-400); RBC Distribution Width 19.3 % (11.5-14.5); Red Blood Cell (RBC) Count 2.94 mill/uL (4.70-6.10)
[2022-04-19 23:14] LABS: ALT (SGPT) Less than 7 U/L (8-55); AST (SGOT) 12 U/L (5-34); Albumin 2.4 g/dL (3.4-4.8); Alkaline Phosphatase 94 U/L (40-110); Anion Gap 14 mmol/L (10-20); BUN (Urea Nitrogen) 23 mg/dL (8.4-25.7); Bilirubin, Total 0.3 mg/dL (0.2-1.2); Calc. Creatinine Clearance 0 mL/min (70-130); Calcium 8.2 mg/dL (7.8-10.44); Carbon Dioxide 22 mmol/L (23-31); Chloride 96 mmol/L (98-107); Estimated GFR 80; Globulin 3.9 g/dL (2.4-3.5); Glucose 186 mg/dL (80-115); Potassium 3.7 mmol/L (3.5-5.1); Protein, Total 6.3 g/dL (5.8-8.1); Sodium 128 mmol/L (136-145)
[2022-04-19 23:15] LABS: ALT (SGPT) Less than 7 U/L (8-55); AST (SGOT) 12 U/L (5-34); Albumin 2.4 g/dL (3.4-4.8); Alkaline Phosphatase 91 U/L (40-110); Anion Gap 13 mmol/L (10-20); BUN (Urea Nitrogen) 22 mg/dL (8.4-25.7); Bilirubin, Total 0.3 mg/dL (0.2-1.2); Calc. Creatinine Clearance 0 mL/min (70-130); Calcium 8.2 mg/dL (7.8-10.44); Carbon Dioxide 23 mmol/L (23-31); Chloride 97 mmol/L (98-107); Estimated GFR 81; Globulin 3.8 g/dL (2.4-3.5); Glucose 186 mg/dL (80-115); Lipase Less than 4 U/L (8-78); Magnesium 1.6 mg/dL (1.6-2.6); Potassium 3.7 mmol/L (3.5-5.1); Protein, Total 6.2 g/dL (5.8-8.1); Sodium 129 mmol/L (136-145)
[2022-04-19] MEDS ORDERED: Pantoprazole 40 MG VIAL ONE (23:15)
[2022-04-19 23:25] LABS: PTT 47.2 sec (22.9-36.1); Prothrombin Time 13.4 sec (12.0-14.7)
[2022-04-19 23:40] LABS: CKMB 2.6 ng/mL (0-6.6)
[2022-04-20 01:05] LABS: SARS-CoV-2 NAA Rapid Test Not Detected (NotDetected)
[2022-04-20] MEDS ORDERED: Ondansetron PF 4 MG/2 ML Vial IVP PRN (01:14)
[2022-04-20] MEDS ORDERED: HumaLOG 300 UNITS/3 ML VIAL SC PRN (01:22)
[2022-04-20] MEDS ORDERED: Dextrose 50% Abboject 50 ML SYRINGE SLOW IVP PRN (01:22)
[2022-04-20] MEDS ORDERED: Dextrose 5% in Water 1,000 ML IV PRN (01:22)
[2022-04-20 02:37] LABS: Critical Call Chem Troponin I RESULT DECREASING; Troponin I 0.398 ng/mL (< 0.028)
[2022-04-20 06:24] LABS: Troponin I 0.515 ng/mL (< 0.028)
[2022-04-20] MEDS ORDERED: Furosemide 20 MG TAB PO SCH (06:30)
[2022-04-20 08:24] LABS: #Lymphocytes 1.2 thou/uL (1.20-3.40); #Monocytes 0.6 thou/uL (0.11-0.59); #Neutrophils 7.3 thou/uL (1.40-6.50); %Eosinophils 0.2 % (0.0-10.0); %Lymphocytes 13.4 % (21.0-51.0); %Monocytes 6.1 % (0.0-10.0); %Neutrophils 80.2 % (42.0-75.0); Hemoglobin 8.2 g/dL (14.0-18.0); Mean Corpuscular HGB CONC 32.2 g/dL (32.0-36.0); Mean Corpuscular Hemoglobin 28.5 pg (27.0-31.0); Mean Corpuscular Volume 88.4 fL (78.0-98.0); Mean Platelet Volume 6.2 fL (7.4-10.4); Platelet Count 578 thou/uL (130-400); RBC Distribution Width 18.5 % (11.5-14.5); Red Blood Cell (RBC) Count 2.88 mill/uL (4.70-6.10)
[2022-04-20 08:33] LABS: Anion Gap 11 mmol/L (10-20); BUN (Urea Nitrogen) 18 mg/dL (8.4-25.7); Calc. Creatinine Clearance 0 mL/min (70-130); Calcium 7.9 mg/dL (7.8-10.44); Carbon Dioxide 22 mmol/L (23-31); Chloride 101 mmol/L (98-107); Estimated GFR 99; Glucose 173 mg/dL (80-115); Potassium 3.5 mmol/L (3.5-5.1); Sodium 130 mmol/L (136-145)
[2022-04-20] MEDS ORDERED: Gentamicin 80 MG/2 ML VIAL IVPB SCH ×2 (09:00→10:00)
[2022-04-20] MEDS ORDERED: Non-Formulary Item 1 EACH (Amiodarone Hcl [Amiodarone Hcl] 100 MG Tablet) PO SCH (09:00)
[2022-04-20] MEDS ORDERED: FLU VACC QS2022-23(6MOS UP)/PF 60 MCG/0.5 ML SYRINGE IM ONE (09:00)
[2022-04-20 09:05] LABS: Troponin I 0.552 ng/mL (< 0.028)
[2022-04-20] MEDS: Oxacillin 2 GM in Sodium Chloride 0.9% 100 ML IVPB SCH ×4 (09:58→21:15)
[2022-04-20] MEDS: Pantoprazole 40 MG VIAL IVP SCH ×2 (09:58→21:15)
[2022-04-20 10:17] LABS: Hemoglobin 8.9 g/dL (14.0-18.0)
[2022-04-20] MEDS ORDERED: Ketamine 50 MG/ML (10ML VIAL) ONE (10:52)
[2022-04-20] MEDS ORDERED: Midazolam HCl 2 mg/2 ml Vial ONE (10:52)
[2022-04-20] MEDS ORDERED: Famotidine/PF 20 mg/2ml Vial ONE (10:52)
[2022-04-20] MEDS ORDERED: PROPOFOL 200 MG/20 ML VIAL ONE (11:11)
[2022-04-20] MEDS ORDERED: Glycopyrrolate 0.2 MG/ML 5 ML SYRINGE ONE (11:11)
[2022-04-20] MEDS ORDERED: PHENYLEPHRINE-NS 100 MCG/ML 10 ML SYRINGE ONE (11:11)
[2022-04-20] MEDS ORDERED: Ondansetron HCl/PF 4 MG/2 ML Vial IVP PRN (11:25)
[2022-04-20] MEDS: Rifampin 300 MG CAP PO SCH ×2 (12:39→21:14)
[2022-04-20] MEDS: Amiodarone 200 MG TAB PO SCH ×2 (12:39→21:14)
[2022-04-20] MEDS: Furosemide 20 MG TAB PO SCH ×2 (12:39→13:19)
[2022-04-20] MEDS: Acetaminophen 325 MG TAB PO PRN (14:34)
[2022-04-20] MEDS: HumaLOG 300 UNITS/3 ML VIAL SC PRN (22:39)
[2022-04-21] MEDS: Oxacillin 2 GM in Sodium Chloride 0.9% 100 ML IVPB SCH ×6 (01:15→21:04)
[2022-04-21 04:08] LABS: #Monocytes 0.5 thou/uL (0.11-0.59); #Neutrophils 4.8 thou/uL (1.40-6.50); %Basophils 0.7 % (0.0-1.0); %Eosinophils 0.7 % (0.0-10.0); %Lymphocytes 16.2 % (21.0-51.0); %Monocytes 7.7 % (0.0-10.0); %Neutrophils 74.8 % (42.0-75.0); Hemoglobin 7.8 g/dL (14.0-18.0); Mean Corpuscular HGB CONC 33.1 g/dL (32.0-36.0); Mean Corpuscular Hemoglobin 29.8 pg (27.0-31.0); Mean Corpuscular Volume 89.8 fL (78.0-98.0); Mean Platelet Volume 5.9 fL (7.4-10.4); Platelet Count 554 thou/uL (130-400); RBC Distribution Width 19.2 % (11.5-14.5); Red Blood Cell (RBC) Count 2.63 mill/uL (4.70-6.10); White Blood Cell (WBC) Count 6.4 thou/uL (4.8-10.8)
[2022-04-21 04:31] LABS: Anion Gap 13 mmol/L (10-20); BUN (Urea Nitrogen) 10 mg/dL (8.4-25.7); Calc. Creatinine Clearance 0 mL/min (70-130); Calcium 7.8 mg/dL (7.8-10.44); Carbon Dioxide 23 mmol/L (23-31); Chloride 99 mmol/L (98-107); Estimated GFR 98; Glucose 131 mg/dL (80-115); Sodium 132 mmol/L (136-145)
[2022-04-21 04:34] LABS: Potassium 2.9 mmol/L (3.5-5.1)
[2022-04-21] MEDS ORDERED: Electrolyte Replacement Protocol 1 EACH FS SCH (05:15)
[2022-04-21 05:34] LABS: Magnesium 1.4 mg/dL (1.6-2.6)
[2022-04-21] MEDS: Acetaminophen 325 MG TAB PO PRN ×3 (05:34→21:03)
[2022-04-21] MEDS: Potassium Chloride 20 MEQ TAB PO SCH ×2 (05:35→10:24)
[2022-04-21] MEDS ORDERED: Magnesium Sulfate In Water 4 GM in Premix Bag 1 BAG IVPB SCH (08:00)
[2022-04-21 09:25] LABS: Hemoglobin 9.1 g/dL (14.0-18.0)
[2022-04-21] MEDS: Amiodarone 200 MG TAB PO SCH ×2 (10:24→21:02)
[2022-04-21] MEDS: Furosemide 20 MG TAB PO SCH ×2 (10:25→14:42)
[2022-04-21] MEDS: Rifampin 300 MG CAP PO SCH ×2 (10:25→21:03)
[2022-04-21] MEDS: Pantoprazole 40 MG VIAL IVP SCH ×2 (10:26→21:50)
[2022-04-21] MEDS: HumaLOG 300 UNITS/3 ML VIAL SC PRN (10:55)
[2022-04-21] MEDS ORDERED: Potassium Bicarbonate/Cit Ac 20 MEQ TAB PO SCH (17:00)
[2022-04-21 17:19] LABS: Hemoglobin 8.5 g/dL (14.0-18.0)
[2022-04-22] MEDS: Oxacillin 2 GM in Sodium Chloride 0.9% 100 ML IVPB SCH ×6 (01:19→20:29)
[2022-04-22] MEDS: Acetaminophen 325 MG TAB PO PRN ×3 (04:29→20:29)
[2022-04-22 05:03] LABS: #Lymphocytes 1.2 thou/uL (1.20-3.40); #Monocytes 0.5 thou/uL (0.11-0.59); %Basophils 0.3 % (0.0-1.0); %Eosinophils 0.7 % (0.0-10.0); %Monocytes 8.8 % (0.0-10.0); %Neutrophils 70.1 % (42.0-75.0); Mean Corpuscular HGB CONC 32.1 g/dL (32.0-36.0); Mean Corpuscular Hemoglobin 28.7 pg (27.0-31.0); Mean Corpuscular Volume 89.5 fL (78.0-98.0); Mean Platelet Volume 6.2 fL (7.4-10.4); Platelet Count 548 thou/uL (130-400); RBC Distribution Width 19.5 % (11.5-14.5); Red Blood Cell (RBC) Count 2.79 mill/uL (4.70-6.10); White Blood Cell (WBC) Count 5.7 thou/uL (4.8-10.8)
[2022-04-22 05:26] LABS: Anion Gap 13 mmol/L (10-20); BUN (Urea Nitrogen) 7 mg/dL (8.4-25.7); Calc. Creatinine Clearance 0 mL/min (70-130); Calcium 7.7 mg/dL (7.8-10.44); Carbon Dioxide 22 mmol/L (23-31); Chloride 97 mmol/L (98-107); Estimated GFR 98; Glucose 164 mg/dL (80-115); Magnesium 1.7 mg/dL (1.6-2.6); Potassium 3.8 mmol/L (3.5-5.1); Sodium 128 mmol/L (136-145)
[2022-04-22] MEDS ORDERED: Magnesium 2 GM/50 ML(in water) 2 GM in Premix Bag 1 BAG IVPB SCH (08:00)
[2022-04-22] MEDS: Amiodarone 200 MG TAB PO SCH ×2 (08:56→20:29)
[2022-04-22] MEDS: Rifampin 300 MG CAP PO SCH ×2 (08:56→21:24)
[2022-04-22] MEDS: Furosemide 20 MG TAB PO SCH ×2 (08:56→14:27)
[2022-04-22] MEDS: Pantoprazole 40 MG VIAL IVP SCH ×2 (08:57→20:29)
[2022-04-22] MEDS: HumaLOG 300 UNITS/3 ML VIAL SC PRN (14:27)
[2022-04-22] MEDS ORDERED: Nitroglycerin 0.4 MG TAB (25 Tab Bottle) ONE (20:21)
[2022-04-23] MEDS: Oxacillin 2 GM in Sodium Chloride 0.9% 100 ML IVPB SCH ×6 (01:06→21:19)
[2022-04-23 05:04] LABS: Magnesium 1.5 mg/dL (1.6-2.6)
[2022-04-23] MEDS: Acetaminophen 325 MG TAB PO PRN ×3 (06:13→21:21)
[2022-04-23] MEDS ORDERED: Magnesium 2 GM/50 ML(in water) 2 GM in Premix Bag 1 BAG IVPB SCH (08:00)
[2022-04-23] MEDS: Amiodarone 200 MG TAB PO SCH ×2 (09:02→21:18)
[2022-04-23] MEDS: Pantoprazole 40 MG VIAL IVP SCH (09:03)
[2022-04-23] MEDS: Furosemide 20 MG TAB PO SCH ×2 (09:03→13:47)
[2022-04-23] MEDS: Rifampin 300 MG CAP PO SCH ×2 (10:23→21:19)
[2022-04-24] MEDS: Oxacillin 2 GM in Sodium Chloride 0.9% 100 ML IVPB SCH ×6 (02:03→19:50)
[2022-04-24] MEDS: HumaLOG 300 UNITS/3 ML VIAL SC PRN ×2 (06:36→18:22)
[2022-04-24] MEDS: Furosemide 20 MG TAB PO SCH ×2 (08:59→13:34)
[2022-04-24] MEDS: Amiodarone 200 MG TAB PO SCH ×2 (08:59→19:47)
[2022-04-24] MEDS: Rifampin 300 MG CAP PO SCH ×2 (10:48→19:47)
[2022-04-24] MEDS: Acetaminophen 325 MG TAB PO PRN (19:46)
[2022-04-24] MEDS ORDERED: Melatonin 3 MG TAB PO PRN (20:35)
[2022-04-25] MEDS: Oxacillin 2 GM in Sodium Chloride 0.9% 100 ML IVPB SCH ×6 (00:30→19:58)
[2022-04-25] MEDS: Rifampin 300 MG CAP PO SCH ×2 (09:30→20:07)
[2022-04-25] MEDS: Amiodarone 200 MG TAB PO SCH ×2 (09:31→19:58)
[2022-04-25] MEDS: Furosemide 20 MG TAB PO SCH ×2 (09:31→13:58)
[2022-04-25] MEDS: Acetaminophen 325 MG TAB PO PRN ×2 (10:35→18:30)
[2022-04-25 14:17] VITALS: BMI 19.8
[2022-04-25] MEDS: HumaLOG 300 UNITS/3 ML VIAL SC PRN (18:44)
[2022-04-26] MEDS: Oxacillin 2 GM in Sodium Chloride 0.9% 100 ML IVPB SCH ×6 (00:20→20:59)
[2022-04-26 04:24] LABS: Anion Gap 12 mmol/L (10-20); BUN (Urea Nitrogen) 11 mg/dL (8.4-25.7); Calc. Creatinine Clearance 45 mL/min (70-130); Calcium 7.7 mg/dL (7.8-10.44); Carbon Dioxide 25 mmol/L (23-31); Chloride 88 mmol/L (98-107); Estimated GFR 63; Glucose 157 mg/dL (80-115); Sodium 122 mmol/L (136-145)
[2022-04-26 04:25] LABS: ALT (SGPT) 7 U/L (8-55); AST (SGOT) 8 U/L (5-34); Albumin 2.2 g/dL (3.4-4.8); Alkaline Phosphatase 104 U/L (40-110); Bilirubin, Total 0.3 mg/dL (0.2-1.2); Globulin 3.8 g/dL (2.4-3.5)
[2022-04-26 04:29] LABS: Potassium 2.9 mmol/L (3.5-5.1)
[2022-04-26 04:42] LABS: #Eosinphils 0.1 thou/uL (0.0-0.7); #Lymphocytes 1.2 thou/uL (1.20-3.40); #Monocytes 0.7 thou/uL (0.11-0.59); #Neutrophils 5.4 thou/uL (1.40-6.50); %Basophils 0.5 % (0.0-1.0); %Eosinophils 0.9 % (0.0-10.0); %Lymphocytes 16.5 % (21.0-51.0); %Monocytes 8.9 % (0.0-10.0); %Neutrophils 73.2 % (42.0-75.0); Hemoglobin 9.8 g/dL (14.0-18.0); Mean Corpuscular HGB CONC 32.7 g/dL (32.0-36.0); Mean Corpuscular Hemoglobin 29.9 pg (27.0-31.0); Mean Corpuscular Volume 91.7 fl (78.0-98.0); Mean Platelet Volume 6.2 fL (7.4-10.4); Platelet Count 582 thou/uL (130-400); RBC Distribution Width 20.6 % (11.5-14.5); Red Blood Cell (RBC) Count 3.27 mill/uL (4.70-6.10); White Blood Cell (WBC) Count 7.4 thou/uL (4.8-10.8)
[2022-04-26] MEDS: HumaLOG 300 UNITS/3 ML VIAL SC PRN ×2 (06:09→13:07)
[2022-04-26 06:47] LABS: Magnesium 1.4 mg/dL (1.6-2.6)
[2022-04-26] MEDS ORDERED: Electrolyte Replacement Protocol 1 EACH FS SCH (07:45)
[2022-04-26] MEDS ORDERED: Potassium Chloride 20 MEQ TAB PO SCH (08:00)
[2022-04-26] MEDS: Potassium Chloride 20 MEQ TAB PO SCH ×2 (08:22→16:27)
[2022-04-26] MEDS: Furosemide 20 MG TAB PO SCH ×2 (08:22→13:06)
[2022-04-26] MEDS: Amiodarone 200 MG TAB PO SCH ×2 (08:23→20:59)
[2022-04-26] MEDS: Rifampin 300 MG CAP PO SCH ×2 (08:25→20:59)
[2022-04-26] MEDS ORDERED: Magnesium Sulfate 3 GM in Sodium Chloride 0.9% 100 ML IVPB SCH (09:00)
[2022-04-26] MEDS ORDERED: Magnesium Sulfate In Water 4 GM in Premix Bag 1 BAG IVPB SCH (09:00)
[2022-04-26] MEDS: Acetaminophen 325 MG TAB PO PRN (18:36)
[2022-04-26 20:28] LABS: Potassium 4.4 mmol/L (3.5-5.1)
[2022-04-27] MEDS: Acetaminophen 325 MG TAB PO PRN ×2 (00:22→15:56)
[2022-04-27] MEDS: Oxacillin 2 GM in Sodium Chloride 0.9% 100 ML IVPB SCH ×5 (00:25→15:46)
[2022-04-27 04:36] LABS: ALT (SGPT) Less than 7 U/L (8-55); AST (SGOT) 8 U/L (5-34); Albumin 2.1 g/dL (3.4-4.8); Alkaline Phosphatase 102 U/L (40-110); Anion Gap 13 mmol/L (10-20); BUN (Urea Nitrogen) 14 mg/dL (8.4-25.7); Bilirubin, Total 0.3 mg/dL (0.2-1.2); Calc. Creatinine Clearance 39 mL/min (70-130); Calcium 8.1 mg/dL (7.8-10.44); Carbon Dioxide 23 mmol/L (23-31); Chloride 90 mmol/L (98-107); Estimated GFR 53; Globulin 3.8 g/dL (2.4-3.5); Glucose 161 mg/dL (80-115); Magnesium 1.9 mg/dL (1.6-2.6); Potassium 3.9 mmol/L (3.5-5.1); Protein, Total 5.9 g/dL (5.8-8.1); Sodium 122 mmol/L (136-145)
[2022-04-27 05:01] LABS: #Basophils 0.1 thou/uL (0.0-0.2); #Eosinphils 0.1 thou/uL (0.0-0.7); #Lymphocytes 1.2 thou/uL (1.20-3.40); #Monocytes 0.7 thou/uL (0.11-0.59); #Neutrophils 4.9 thou/uL (1.40-6.50); %Basophils 0.9 % (0.0-1.0); %Eosinophils 0.8 % (0.0-10.0); %Lymphocytes 17.7 % (21.0-51.0); %Monocytes 10.3 % (0.0-10.0); %Neutrophils 70.3 % (42.0-75.0); Anisocytosis SLIGHT = 6-15 cells (100X) (0-5/hpf); Burr Cells SLIGHT = 2-5 cells (100X) (0-1/hpf); Hypochromia SLIGHT = 6-15 cells (100X) (0-5/hpf); MDiff Complete? YES; Mean Corpuscular HGB CONC 31.6 g/dL (32.0-36.0); Mean Corpuscular Hemoglobin 28.8 pg (27.0-31.0); Mean Corpuscular Volume 90.9 fl (78.0-98.0); Mean Platelet Volume 6.2 fL (7.4-10.4); Platelet Count 580 thou/uL (130-400); Platelet Morphology Comment Appears Increased; Polychromasia SLIGHT = 2-3 cells (100X) (0-2/hpf); RBC Distribution Width 20.9 % (11.5-14.5); Red Blood Cell (RBC) Count 3.12 mill/uL (4.70-6.10); White Blood Cell (WBC) Count 6.9 thou/uL (4.8-10.8)
[2022-04-27] MEDS ORDERED: Magnesium 2 GM/50 ML(in water) 2 GM in Premix Bag 1 BAG IVPB SCH (08:00)
[2022-04-27] MEDS: Rifampin 300 MG CAP PO SCH (08:15)
[2022-04-27] MEDS: Amiodarone 200 MG TAB PO SCH (08:15)
[2022-04-27] MEDS: HumaLOG 300 UNITS/3 ML VIAL SC PRN (11:57)
[2022-04-27 12:25] VITALS: BP 132/77; TEMP 98
== END 2022-04-27 17:30 | disposition home health service (06) | DRG 377 ==
LOC: ERS 21:54 → IMCU/EMU 04-20 01:04 → 2NO 04-21 11:44
PROVIDERS: ADMIT Internal Medicine; ATTEND Internal Medicine
PROC: 0W3P8ZZ Control Bleeding in Gastrointestinal Tract, Via Natural or Artificial Opening Endoscopic (ICD-10-PCS; principal; 2022-04-20)
PROC: 30233N1 Transfusion of Nonautologous Red Blood Cells into Peripheral Vein, Percutaneous Approach (ICD-10-PCS; 2022-04-20)
DX: K26.4 Chronic or unspecified duodenal ulcer with hemorrhage (principal); Z20.822 Contact with and (suspected) exposure to COVID-19; I33.0 Acute and subacute infective endocarditis; N17.0 Acute kidney failure with tubular necrosis; D62 Acute posthemorrhagic anemia; J90 Pleural effusion, not elsewhere classified; K86.1 Other chronic pancreatitis; K29.71 Gastritis, unspecified, with bleeding; K20.80 Other esophagitis without bleeding; E78.5 Hyperlipidemia, unspecified; E11.9 Type 2 diabetes mellitus without complications; I48.91 Unspecified atrial fibrillation; D75.839 Thrombocytosis, unspecified; D64.9 Anemia, unspecified; I25.10 Atherosclerotic heart disease of native coronary artery without angina pectoris; R77.8 Other specified abnormalities of plasma proteins; T50.1X5A Adverse effect of loop [high-ceiling] diuretics, initial encounter; Z28.21 Immunization not carried out because of patient refusal; Z86.73 Personal history of transient ischemic attack (TIA), and cerebral infarction without residual deficits; Z95.1 Presence of aortocoronary bypass graft; Z95.2 Presence of prosthetic heart valve; Z95.3 Presence of xenogenic heart valve; Z79.899 Other long term (current) drug therapy; Z79.82 Long term (current) use of aspirin; Z79.4 Long term (current) use of insulin; Z79.51 Long term (current) use of inhaled steroids; Z90.49 Acquired absence of other specified parts of digestive tract; Z98.890 Other specified postprocedural states; Z87.891 Personal history of nicotine dependence
CPT/HCPCS: 36415; 36416; 36430; 70450; 71045; 74177; 80048; 80053; 82274; 82553; 83605; 83690; 83735; 84100; 84484; 85025; 85610; 85730; 86850; 86900; 86901; 87040; 87338; 87811; 93005; 96361; 96374; 96375; 97139; C1776; C9113; J1580; J1815; J2250; J2405; J2700; J2704; J3475; J3490; P9016; Q9967; S0028; U0002

== ENCOUNTER 2022-05-06 13:51 | Inpatient (IN) | payer OTHER ==
[2022-05-06 16:19] LABS: Actual Bicarbonate (HCO3v) 17 mEq/L (22-28); Analyzer IN Cardio ER; Calcium, Ionized (venous) 0.93 mmol/L (1.16-1.32); Chloride (VBG) 97 mmol/L (98-106); Hemoglobin (Hb) 11.8 g/dL (13.1-17.2); Potassium (VBG) 4.28 mmol/L (3.70-5.30); Sodium 122.6 mmol/L (133-146); pH (venous) 7.39 (7.32-7.43)
[2022-05-06 16:26] LABS: #Lymphocytes 1.4 thou/uL (1.20-3.40); #Monocytes 0.5 thou/uL (0.11-0.59); #Neutrophils 5.9 thou/uL (1.40-6.50); %Basophils 0.6 % (0.0-1.0); %Eosinophils 0.4 % (0.0-10.0); %Lymphocytes 18.2 % (21.0-51.0); %Monocytes 5.8 % (0.0-10.0); Hemoglobin 10.4 g/dL (14.0-18.0); Mean Corpuscular HGB CONC 31.4 g/dL (32.0-36.0); Mean Corpuscular Hemoglobin 29.3 pg (27.0-31.0); Mean Corpuscular Volume 93.4 fl (78.0-98.0); Mean Platelet Volume 6.6 fL (7.4-10.4); Platelet Count 487 thou/uL (130-400); RBC Distribution Width 20.6 % (11.5-14.5); Red Blood Cell (RBC) Count 3.54 mill/uL (4.70-6.10); White Blood Cell (WBC) Count 7.9 thou/uL (4.8-10.8)
[2022-05-06 16:34] LABS: ALT (SGPT) 10 U/L (8-55); AST (SGOT) 11 U/L (5-34); Alkaline Phosphatase 108 U/L (40-110); Anion Gap 22 mmol/L (10-20); BUN (Urea Nitrogen) 30 mg/dL (8.4-25.7); Bilirubin, Total 0.3 mg/dL (0.2-1.2); Calc. Creatinine Clearance 0 mL/min (70-130); Calcium 7.8 mg/dL (7.8-10.44); Carbon Dioxide 13 mmol/L (23-31); Chloride 98 mmol/L (98-107); Estimated GFR 19; Globulin 3.9 g/dL (2.4-3.5); Glucose 120 mg/dL (80-115); Lipase 6 U/L (8-78); Magnesium 1.5 mg/dL (1.6-2.6); Potassium 4.8 mmol/L (3.5-5.1); Protein, Total 5.9 g/dL (5.8-8.1); Sodium 128 mmol/L (136-145)
[2022-05-06 16:58] LABS: CKMB 1.8 ng/mL (0-6.6)
[2022-05-06] MEDS ORDERED: Cefepime 2 GM VIAL ONE (17:48)
[2022-05-06] MEDS ORDERED: Vancomycin 1 GM/200 ML (PREMIX) BAG ONE (18:19)
[2022-05-06 19:10] LABS: Lactic Acid 3.1 mmol/L (0.5-2.2)
[2022-05-06 19:40] LABS: Bilirubin Negative (Negative); Blood, Urine Negative (Negative); Clarity Clear (Clear); Glucose, Urine (Dipstick) Normal (Negative); Ketone, Urine Trace mg/dL (Negative); Leukocyte Negative Leu/uL (Negative); Nitrite Negative (Negative); Protein, Urine (Dipstick) 20 mg/dL (Neg-Trace); Urobilinogen Normal mg/dL (Less than 2)
[2022-05-06] MEDS ORDERED: Dextrose 50% Abboject 50 ML SYRINGE SLOW IVP PRN (20:09)
[2022-05-06] MEDS ORDERED: Dextrose 5% in Water 1,000 ML IV PRN (20:09)
[2022-05-06] MEDS ORDERED: Bisacodyl 5 MG TAB PO PRN (20:10)
[2022-05-06] MEDS ORDERED: Ondansetron PF 4 MG/2 ML Vial IVP PRN (20:10)
[2022-05-06] MEDS ORDERED: HumaLOG 300 UNITS/3 ML VIAL SC PRN (20:10)
[2022-05-06] MEDS ORDERED: Nitroglycerin 0.4 MG TAB (25 Tab Bottle) SL PRN (20:10)
[2022-05-06] MEDS: Acetaminophen 325 MG TAB PO PRN (21:08)
[2022-05-06] MEDS: Amiodarone 200 MG TAB PO SCH (21:08)
[2022-05-06] MEDS: Sodium Chloride 1 GM TAB PO SCH (21:08)
[2022-05-06] MEDS: Zolpidem Tartrate 5 MG TAB PO PRN (21:08)
[2022-05-06 22:02] LABS: Troponin I 0.675 ng/mL (< 0.028)
[2022-05-06] MEDS ORDERED: Clopidogrel Bisulfate 75 MG TAB PO SCH (22:15)
[2022-05-06] MEDS ORDERED: Aspirin 81 mg Enteric Coated Tablet PO SCH (22:15)
[2022-05-06 23:00] LABS: Creatinine, Urine 71.45 mg/dL (63-166); Potassium, Urine 43.5 mmol/L
[2022-05-06] MEDS: Rifampin 300 MG CAP PO SCH (23:24)
[2022-05-06] MEDS: Sodium Bicarbonate 150 MEQ in Dextrose 5% in Water 1,000 ML IV SCH (23:24)
[2022-05-07 00:18] LABS: Troponin I 0.881 ng/mL (< 0.028)
[2022-05-07 02:02] LABS: Vancomycin, Random 18.7 ug/mL (See Comment)
[2022-05-07 05:44] LABS: #Basophils 0.1 thou/uL (0.0-0.2); #Eosinphils 0.1 thou/uL (0.0-0.7); #Lymphocytes 1.4 thou/uL (1.20-3.40); #Monocytes 0.4 thou/uL (0.11-0.59); %Basophils 1.8 % (0.0-1.0); %Eosinophils 1.7 % (0.0-10.0); %Lymphocytes 23.9 % (21.0-51.0); %Monocytes 6.9 % (0.0-10.0); %Neutrophils 65.7 % (42.0-75.0); Hemoglobin 9.3 g/dL (14.0-18.0); Mean Corpuscular HGB CONC 31.5 g/dL (32.0-36.0); Mean Corpuscular Hemoglobin 29.1 pg (27.0-31.0); Mean Corpuscular Volume 92.5 fl (78.0-98.0); Mean Platelet Volume 6.3 fL (7.4-10.4); Platelet Count 465 thou/uL (130-400); RBC Distribution Width 20.3 % (11.5-14.5); Red Blood Cell (RBC) Count 3.18 mill/uL (4.70-6.10)
[2022-05-07 06:11] LABS: Albumin 1.8 g/dL (3.4-4.8); Anion Gap 15 mmol/L (10-20); BUN (Urea Nitrogen) 30 mg/dL (8.4-25.7); BUN/Creatinine Ratio 9.12; Calc. Creatinine Clearance 19 mL/min (70-130); Calcium 7.3 mg/dL (7.8-10.44); Carbon Dioxide 19 mmol/L (23-31); Chloride 100 mmol/L (98-107); Estimated GFR 20; Glucose 189 mg/dL (80-115); Magnesium 1.3 mg/dL (1.6-2.6); Phosphorus 4.3 mg/dL (2.3-4.7); Potassium 3.6 mmol/L (3.5-5.1); Sodium 130 mmol/L (136-145)
[2022-05-07] MEDS ORDERED: Enoxaparin Sodium 30 MG/0.3 ML SYRINGE SC SCH (09:00)
[2022-05-07] MEDS ORDERED: Albumin 25% 25 GM/100 ML BOT IVPB SCH (09:00)
[2022-05-07] MEDS: Aspirin Chewable 81 MG TAB PO SCH (09:41)
[2022-05-07] MEDS: Amiodarone 200 MG TAB PO SCH ×2 (09:41→20:49)
[2022-05-07] MEDS: Rifampin 300 MG CAP PO SCH ×2 (09:42→20:49)
[2022-05-07] MEDS: Insulin Glargine 30 UNITS/0.3 ML VIAL SC SCH (09:42)
[2022-05-07] MEDS: Sodium Chloride 1 GM TAB PO SCH ×4 (09:42→20:49)
[2022-05-07] MEDS: Clopidogrel Bisulfate 75 MG TAB PO SCH (09:42)
[2022-05-07] MEDS ORDERED: Vancomycin HCl 500 MG in Sodium Chloride 0.9% 100 ML IV SCH (10:00)
[2022-05-07] MEDS: Sodium Bicarbonate 150 MEQ in Dextrose 5% in Water 1,000 ML IV SCH (10:41)
[2022-05-07] MEDS: Fluticasone Propionate Nasal Spray 16 gm Bottle NASAL SCH (10:41)
[2022-05-07] MEDS: Albumin 25% 25 GM/100 ML BOT IVPB SCH ×3 (12:10→20:48)
[2022-05-07] MEDS: Sodium Chloride 0.9% 1,000 ML IV SCH ×2 (12:11→20:49)
[2022-05-07] MEDS: CEFAZOLIN 1 GM in Sodium Chloride 0.9% 100 ML IVPB SCH ×2 (12:12→14:00)
[2022-05-07] MEDS ORDERED: Vancomycin Dose by Levels Sliding Scale (Wt <71) FS SCH (12:15)
[2022-05-07] MEDS: HumaLOG 300 UNITS/3 ML VIAL SC PRN (12:30)
[2022-05-07] MEDS ORDERED: Magnesium Sulfate In Water 4 GM in Premix Bag 1 BAG IVPB SCH (14:00)
[2022-05-07] MEDS ORDERED: Promethazine HCl 12.5 MG in Sodium Chloride 0.9% 50 ML IVPB SCH (17:15)
[2022-05-07] MEDS: Zolpidem Tartrate 5 MG TAB PO PRN (20:49)
[2022-05-07] MEDS ORDERED: Vancomycin 1 GM in Premix Bag 1 BAG IVPB SCH (21:00)
[2022-05-07 21:30] LABS: Vancomycin, Random 17.5 ug/mL (See Comment)
[2022-05-07] MEDS ORDERED: Vancomycin HCl 250 MG in Sodium Chloride 0.9% 100 ML IVPB SCH (23:00)
[2022-05-08] MEDS: CEFAZOLIN 1 GM in Sodium Chloride 0.9% 100 ML IVPB SCH ×2 (00:42→13:37)
[2022-05-08] MEDS: Albumin 25% 25 GM/100 ML BOT IVPB SCH (04:34)
[2022-05-08 06:02] LABS: #Basophils 0.1 thou/uL (0.0-0.2); #Eosinphils 0.1 thou/uL (0.0-0.7); #Lymphocytes 1.1 thou/uL (1.20-3.40); #Monocytes 0.4 thou/uL (0.11-0.59); #Neutrophils 5.4 thou/uL (1.40-6.50); %Eosinophils 0.8 % (0.0-10.0); %Lymphocytes 15.2 % (21.0-51.0); %Neutrophils 76.9 % (42.0-75.0); Hemoglobin 6.6 g/dL (14.0-18.0); Mean Corpuscular Hemoglobin 29.2 pg (27.0-31.0); Mean Corpuscular Volume 91.4 fl (78.0-98.0); Mean Platelet Volume 6.4 fL (7.4-10.4); Platelet Count 353 thou/uL (130-400); RBC Distribution Width 20.1 % (11.5-14.5); Red Blood Cell (RBC) Count 2.25 mill/uL (4.70-6.10)
[2022-05-08 07:00] LABS: Anion Gap 12 mmol/L (10-20); BUN (Urea Nitrogen) 28 mg/dL (8.4-25.7); Calc. Creatinine Clearance 23 mL/min (70-130); Calcium 7.6 mg/dL (7.8-10.44); Carbon Dioxide 21 mmol/L (23-31); Chloride 101 mmol/L (98-107); Estimated GFR 25; Glucose 99 mg/dL (80-115); Potassium 3.2 mmol/L (3.5-5.1); Sodium 131 mmol/L (136-145)
[2022-05-08 07:11] LABS: Albumin 3.2 g/dL (3.4-4.8); Anion Gap 11 mmol/L (10-20); BUN (Urea Nitrogen) 27 mg/dL (8.4-25.7); BUN/Creatinine Ratio 9.93; Calc. Creatinine Clearance 23 mL/min (70-130); Calcium 7.6 mg/dL (7.8-10.44); Carbon Dioxide 22 mmol/L (23-31); Chloride 102 mmol/L (98-107); Estimated GFR 25; Glucose 100 mg/dL (80-115); Phosphorus 3.2 mg/dL (2.3-4.7); Potassium 3.2 mmol/L (3.5-5.1); Sodium 132 mmol/L (136-145)
[2022-05-08] MEDS: Clopidogrel Bisulfate 75 MG TAB PO SCH (09:24)
[2022-05-08] MEDS: Sodium Chloride 1 GM TAB PO SCH ×4 (09:24→20:53)
[2022-05-08] MEDS: Aspirin Chewable 81 MG TAB PO SCH (09:24)
[2022-05-08] MEDS: Sodium Chloride 0.9% 1,000 ML IV SCH ×2 (09:24→17:43)
[2022-05-08] MEDS: Fluticasone Propionate Nasal Spray 16 gm Bottle NASAL SCH (09:25)
[2022-05-08] MEDS: Insulin Glargine 30 UNITS/0.3 ML VIAL SC SCH (09:25)
[2022-05-08] MEDS: Amiodarone 200 MG TAB PO SCH ×2 (09:30→20:52)
[2022-05-08] MEDS: Rifampin 300 MG CAP PO SCH ×2 (09:30→20:53)
[2022-05-08] MEDS: Zolpidem Tartrate 5 MG TAB PO PRN (20:52)
[2022-05-08 22:30] LABS: Vancomycin, Random 12.4 ug/mL (See Comment)
[2022-05-08] MEDS ORDERED: Vancomycin HCl 500 MG in Sodium Chloride 0.9% 100 ML IVPB SCH (23:00)
[2022-05-09] MEDS: CEFAZOLIN 1 GM in Sodium Chloride 0.9% 100 ML IVPB SCH ×3 (00:14→23:04)
[2022-05-09] MEDS: Sodium Chloride 0.9% 1,000 ML IV SCH (04:00)
[2022-05-09 07:04] LABS: #Eosinphils 0.1 thou/uL (0.0-0.7); #Monocytes 0.3 thou/uL (0.11-0.59); #Neutrophils 4.8 thou/uL (1.40-6.50); %Basophils 0.2 % (0.0-1.0); %Eosinophils 0.8 % (0.0-10.0); %Neutrophils 78.1 % (42.0-75.0); Hemoglobin 8.6 g/dL (14.0-18.0); Mean Corpuscular HGB CONC 32.7 g/dL (32.0-36.0); Mean Corpuscular Hemoglobin 29.2 pg (27.0-31.0); Mean Corpuscular Volume 89.2 fl (78.0-98.0); Mean Platelet Volume 6.8 fL (7.4-10.4); Platelet Count 349 10x3/uL (130-400); RBC Distribution Width 19.5 % (11.5-14.5); Red Blood Cell (RBC) Count 2.93 mill/uL (4.70-6.10); White Blood Cell (WBC) Count 6.2 10x3/uL (4.8-10.8)
[2022-05-09 07:29] LABS: Albumin 2.5 g/dL (3.4-4.8); Anion Gap 8 mmol/L (10-20); BUN (Urea Nitrogen) 22 mg/dL (8.4-25.7); BUN/Creatinine Ratio 9.91; Calc. Creatinine Clearance 28 mL/min (70-130); Calcium 7.4 mg/dL (7.8-10.44); Carbon Dioxide 22 mmol/L (23-31); Chloride 104 mmol/L (98-107); Estimated GFR 32; Glucose 88 mg/dL (80-115); Magnesium 1.6 mg/dL (1.6-2.6); Phosphorus 2.5 mg/dL (2.3-4.7); Sodium 131 mmol/L (136-145)
[2022-05-09] MEDS ORDERED: Potassium Chloride 20 MEQ in Premix Bag 1 BAG IVPB SCH ×2 (08:45→09:00)
[2022-05-09] MEDS ORDERED: Furosemide 20 MG/2 ML VIAL SLOW IVP SCH (09:00)
[2022-05-09] MEDS: Ascorbic Acid 500 mg Chewable Tablet PO SCH (09:05)
[2022-05-09] MEDS: Rifampin 300 MG CAP PO SCH ×2 (09:05→23:04)
[2022-05-09] MEDS: Sodium Chloride 1 GM TAB PO SCH ×4 (09:06→20:16)
[2022-05-09] MEDS: Clopidogrel Bisulfate 75 MG TAB PO SCH (09:06)
[2022-05-09] MEDS: Multivit, Therapeutic 1 TAB PO SCH (09:06)
[2022-05-09] MEDS: Amiodarone 200 MG TAB PO SCH ×2 (09:06→20:15)
[2022-05-09] MEDS: Aspirin Chewable 81 MG TAB PO SCH (09:06)
[2022-05-09] MEDS: Insulin Glargine 30 UNITS/0.3 ML VIAL SC SCH (09:07)
[2022-05-09] MEDS: Fluticasone Propionate Nasal Spray 16 gm Bottle NASAL SCH (09:07)
[2022-05-09] MEDS: HYDROcodone/Acetaminophen 7.5/325 mg Tablet PO PRN (09:13)
[2022-05-09] MEDS ORDERED: Magnesium 2 GM/50 ML(in water) 2 GM in Premix Bag 1 BAG IVPB SCH (13:30)
[2022-05-09] MEDS ORDERED: Rifampin 300 MG CAP PO SCH (15:00)
[2022-05-09] MEDS: Zolpidem Tartrate 5 MG TAB PO PRN (20:15)
[2022-05-09] MEDS: Acetaminophen 325 MG TAB PO PRN (23:05)
[2022-05-10 05:48] LABS: #Basophils 0.1 thou/uL (0.0-0.2); #Eosinphils 0.1 thou/uL (0.0-0.7); #Lymphocytes 1.2 thou/uL (1.20-3.40); #Monocytes 0.4 thou/uL (0.11-0.59); #Neutrophils 5.5 thou/uL (1.40-6.50); %Basophils 0.7 % (0.0-1.0); %Eosinophils 0.8 % (0.0-10.0); %Lymphocytes 16.5 % (21.0-51.0); %Monocytes 5.3 % (0.0-10.0); %Neutrophils 76.8 % (42.0-75.0); Mean Corpuscular HGB CONC 32.7 g/dL (32.0-36.0); Mean Corpuscular Volume 88.9 fl (78.0-98.0); Mean Platelet Volume 6.6 fL (7.4-10.4); Platelet Count 358 10x3/uL (130-400); RBC Distribution Width 19.7 % (11.5-14.5); Red Blood Cell (RBC) Count 3.09 mill/uL (4.70-6.10); White Blood Cell (WBC) Count 7.2 10x3/uL (4.8-10.8)
[2022-05-10 06:13] LABS: Albumin 2.5 g/dL (3.4-4.8); Anion Gap 11 mmol/L (10-20); BUN (Urea Nitrogen) 20 mg/dL (8.4-25.7); BUN/Creatinine Ratio 10.26; Calc. Creatinine Clearance 32 mL/min (70-130); Calcium 7.8 mg/dL (7.8-10.44); Carbon Dioxide 20 mmol/L (23-31); Chloride 101 mmol/L (98-107); Estimated GFR 38; Glucose 82 mg/dL (80-115); Phosphorus 2.6 mg/dL (2.3-4.7); Potassium 3.2 mmol/L (3.5-5.1); Sodium 129 mmol/L (136-145)
[2022-05-10] MEDS ORDERED: Potassium Chloride 20 MEQ TAB PO SCH (08:15)
[2022-05-10] MEDS: Aspirin Chewable 81 MG TAB PO SCH (09:32)
[2022-05-10] MEDS: Multivit, Therapeutic 1 TAB PO SCH (09:32)
[2022-05-10] MEDS: Clopidogrel Bisulfate 75 MG TAB PO SCH (09:32)
[2022-05-10] MEDS: Amiodarone 200 MG TAB PO SCH ×2 (09:32→21:22)
[2022-05-10] MEDS: Insulin Glargine 30 UNITS/0.3 ML VIAL SC SCH (09:32)
[2022-05-10] MEDS: Sodium Chloride 1 GM TAB PO SCH ×4 (09:32→21:21)
[2022-05-10] MEDS: Fluticasone Propionate Nasal Spray 16 gm Bottle NASAL SCH (09:33)
[2022-05-10] MEDS: Ascorbic Acid 500 mg Chewable Tablet PO SCH (09:33)
[2022-05-10] MEDS: Rifampin 300 MG CAP PO SCH ×2 (09:33→21:21)
[2022-05-10] MEDS: CEFAZOLIN 2 GM in Sodium Chloride 0.9% 100 ML IVPB SCH (15:55)
[2022-05-10] MEDS: HYDROcodone/Acetaminophen 7.5/325 mg Tablet PO PRN (15:55)
[2022-05-10] MEDS: HumaLOG 300 UNITS/3 ML VIAL SC PRN (16:54)
[2022-05-10] MEDS: Acetaminophen 325 MG TAB PO PRN (21:21)
[2022-05-10] MEDS: Zolpidem Tartrate 5 MG TAB PO PRN (21:21)
[2022-05-10] MEDS: guaiFENesin ER 600 MG TAB PO SCH (21:22)
[2022-05-11] MEDS: CEFAZOLIN 2 GM in Sodium Chloride 0.9% 100 ML IVPB SCH ×3 (01:08→16:54)
[2022-05-11 06:35] LABS: #Eosinphils 0.1 thou/uL (0.0-0.7); #Lymphocytes 1.1 thou/uL (1.20-3.40); #Monocytes 0.4 thou/uL (0.11-0.59); %Basophils 0.5 % (0.0-1.0); %Eosinophils 1.5 % (0.0-10.0); %Lymphocytes 16.6 % (21.0-51.0); %Monocytes 5.9 % (0.0-10.0); %Neutrophils 75.4 % (42.0-75.0); Hemoglobin 8.9 g/dL (14.0-18.0); Mean Corpuscular HGB CONC 33.2 g/dL (32.0-36.0); Mean Corpuscular Hemoglobin 29.4 pg (27.0-31.0); Mean Corpuscular Volume 88.6 fl (78.0-98.0); Mean Platelet Volume 6.8 fL (7.4-10.4); Platelet Count 356 10x3/uL (130-400); RBC Distribution Width 19.8 % (11.5-14.5); Red Blood Cell (RBC) Count 3.01 mill/uL (4.70-6.10); White Blood Cell (WBC) Count 6.7 10x3/uL (4.8-10.8)
[2022-05-11 06:59] LABS: Phosphorus 2.4 mg/dL (2.3-4.7)
[2022-05-11 07:00] LABS: Anion Gap 10 mmol/L (10-20); BUN (Urea Nitrogen) 18 mg/dL (8.4-25.7); Calc. Creatinine Clearance 37 mL/min (70-130); Calcium 7.8 mg/dL (7.8-10.44); Carbon Dioxide 19 mmol/L (23-31); Chloride 103 mmol/L (98-107); Estimated GFR 44; Glucose 60 mg/dL (80-115); Magnesium 1.6 mg/dL (1.6-2.6); Potassium 3.4 mmol/L (3.5-5.1); Sodium 129 mmol/L (136-145)
[2022-05-11] MEDS: Fluticasone Propionate Nasal Spray 16 gm Bottle NASAL SCH (08:57)
[2022-05-11] MEDS: Ascorbic Acid 500 mg Chewable Tablet PO SCH (08:59)
[2022-05-11] MEDS: guaiFENesin ER 600 MG TAB PO SCH ×2 (09:00→20:41)
[2022-05-11] MEDS: Insulin Glargine 30 UNITS/0.3 ML VIAL SC SCH (09:00)
[2022-05-11] MEDS: Clopidogrel Bisulfate 75 MG TAB PO SCH (09:00)
[2022-05-11] MEDS: Multivit, Therapeutic 1 TAB PO SCH (09:00)
[2022-05-11] MEDS: Aspirin Chewable 81 MG TAB PO SCH (09:00)
[2022-05-11] MEDS: Amiodarone 200 MG TAB PO SCH ×2 (09:00→20:41)
[2022-05-11] MEDS: Acetaminophen 325 MG TAB PO PRN ×3 (09:07→20:51)
[2022-05-11] MEDS: Sodium Chloride 1 GM TAB PO SCH ×4 (09:07→20:41)
[2022-05-11] MEDS: Rifampin 300 MG CAP PO SCH ×2 (09:07→20:42)
[2022-05-11] MEDS: Albumin 25% 25 GM/100 ML BOT IVPB SCH ×3 (11:06→23:48)
[2022-05-11] MEDS ORDERED: DRY MOUTH SPRAY MM PRN (13:59)
[2022-05-11] MEDS: Melatonin 3 MG TAB PO SCH (20:42)
[2022-05-11] MEDS: HYDROcodone/Acetaminophen 7.5/325 mg Tablet PO PRN (23:48)
[2022-05-12] MEDS: CEFAZOLIN 2 GM in Sodium Chloride 0.9% 100 ML IVPB SCH ×3 (01:36→16:03)
[2022-05-12] MEDS: Albumin 25% 25 GM/100 ML BOT IVPB SCH (05:02)
[2022-05-12 05:29] LABS: #Eosinphils 0.1 thou/uL (0.0-0.7); #Lymphocytes 1.1 thou/uL (1.20-3.40); #Monocytes 0.4 thou/uL (0.11-0.59); #Neutrophils 5.5 thou/uL (1.40-6.50); %Basophils 0.5 % (0.0-1.0); %Eosinophils 0.9 % (0.0-10.0); %Lymphocytes 15.9 % (21.0-51.0); %Monocytes 6.2 % (0.0-10.0); %Neutrophils 76.5 % (42.0-75.0); Hemoglobin 8.3 g/dL (14.0-18.0); Mean Corpuscular HGB CONC 31.8 g/dL (32.0-36.0); Mean Corpuscular Hemoglobin 28.5 pg (27.0-31.0); Mean Corpuscular Volume 89.6 fl (78.0-98.0); Mean Platelet Volume 6.8 fL (7.4-10.4); Platelet Count 341 10x3/uL (130-400); RBC Distribution Width 19.7 % (11.5-14.5); Red Blood Cell (RBC) Count 2.91 mill/uL (4.70-6.10); White Blood Cell (WBC) Count 7.2 10x3/uL (4.8-10.8)
[2022-05-12 05:49] LABS: Anion Gap 14 mmol/L (10-20); BUN (Urea Nitrogen) 15 mg/dL (8.4-25.7); Calc. Creatinine Clearance 40 mL/min (70-130); Calcium 8.5 mg/dL (7.8-10.44); Carbon Dioxide 20 mmol/L (23-31); Chloride 102 mmol/L (98-107); Estimated GFR 49; Glucose 70 mg/dL (80-115); Potassium 3.7 mmol/L (3.5-5.1); Sodium 132 mmol/L (136-145)
[2022-05-12] MEDS: Insulin Glargine 30 UNITS/0.3 ML VIAL SC SCH (08:39)
[2022-05-12] MEDS: Clopidogrel Bisulfate 75 MG TAB PO SCH (08:39)
[2022-05-12] MEDS: Aspirin Chewable 81 MG TAB PO SCH (08:39)
[2022-05-12] MEDS: Sodium Chloride 1 GM TAB PO SCH ×4 (08:39→19:40)
[2022-05-12] MEDS: Amiodarone 200 MG TAB PO SCH ×2 (08:39→19:41)
[2022-05-12] MEDS: Multivit, Therapeutic 1 TAB PO SCH (08:40)
[2022-05-12] MEDS: Ascorbic Acid 500 mg Chewable Tablet PO SCH (08:40)
[2022-05-12] MEDS: guaiFENesin ER 600 MG TAB PO SCH ×2 (08:40→19:40)
[2022-05-12] MEDS: Fluticasone Propionate Nasal Spray 16 gm Bottle NASAL SCH (08:47)
[2022-05-12] MEDS: Rifampin 300 MG CAP PO SCH ×2 (11:46→19:39)
[2022-05-12] MEDS: Melatonin 3 MG TAB PO SCH (19:40)
[2022-05-12] MEDS: HYDROcodone/Acetaminophen 7.5/325 mg Tablet PO PRN (19:40)
[2022-05-13] MEDS: CEFAZOLIN 2 GM in Sodium Chloride 0.9% 100 ML IVPB SCH ×3 (01:00→17:16)
[2022-05-13 05:56] LABS: Anion Gap 14 mmol/L (10-20); BUN (Urea Nitrogen) 15 mg/dL (8.4-25.7); Calc. Creatinine Clearance 41 mL/min (70-130); Calcium 8.6 mg/dL (7.8-10.44); Carbon Dioxide 20 mmol/L (23-31); Chloride 102 mmol/L (98-107); Estimated GFR 51; Potassium 3.6 mmol/L (3.5-5.1); Sodium 132 mmol/L (136-145)
[2022-05-13 05:59] LABS: Glucose 39 mg/dL (80-115)
[2022-05-13] MEDS: Rifampin 300 MG CAP PO SCH ×2 (09:59→21:01)
[2022-05-13] MEDS: Ascorbic Acid 500 mg Chewable Tablet PO SCH (10:00)
[2022-05-13] MEDS: Amiodarone 200 MG TAB PO SCH ×2 (10:01→20:51)
[2022-05-13] MEDS: Multivit, Therapeutic 1 TAB PO SCH (10:01)
[2022-05-13] MEDS: guaiFENesin ER 600 MG TAB PO SCH ×2 (10:01→20:52)
[2022-05-13] MEDS: Sodium Chloride 1 GM TAB PO SCH ×4 (10:01→20:51)
[2022-05-13] MEDS: Clopidogrel Bisulfate 75 MG TAB PO SCH (10:01)
[2022-05-13] MEDS: Insulin Glargine 30 UNITS/0.3 ML VIAL SC SCH (10:02)
[2022-05-13] MEDS: Aspirin Chewable 81 MG TAB PO SCH (10:02)
[2022-05-13] MEDS: Fluticasone Propionate Nasal Spray 16 gm Bottle NASAL SCH (10:09)
[2022-05-13] MEDS: Carvedilol 6.25 MG TAB PO SCH (17:15)
[2022-05-13] MEDS ORDERED: ALPRAZolam 0.25 MG TAB PO SCH (17:45)
[2022-05-13 17:46] LABS: Actual Bicarbonate (HCO3a) 17.5 mEq/L (22-28); CO2 Tension 31.4 mmHg (35.0-45.0); Calcium, Ionized (arterial) 1.16 mmol/L (1.12-1.30); Carboxyhemoglobin (COHb) 0.2 gm% (0.0-3.0); Hemoglobin (Hb) 9.8 g/dL (14.0-18.0); Potassium - ABG Lab 4.06 mmol/L (3.70-5.30); pH, Arterial 7.36 (7.35-7.45)
[2022-05-13 17:47] LABS: Puncture Site RRA
[2022-05-13] MEDS ORDERED: methylPREDNISolone Sod Succ 40 MG VIAL IVP SCH (18:30)
[2022-05-13] MEDS: Budesonide 0.5 MG/2 ML NEB NEB SCH (18:51)
[2022-05-13 19:05] LABS: Troponin I 1.919 ng/mL (< 0.028)
[2022-05-13] MEDS ORDERED: Furosemide 20 MG/2 ML VIAL SLOW IVP SCH (19:24)
[2022-05-13] MEDS ORDERED: Enoxaparin Sodium 60 MG/0.6 ML SYRINGE SC SCH (19:45)
[2022-05-13] MEDS: ALPRAZolam 0.25 MG TAB PO SCH (20:51)
[2022-05-13] MEDS: Melatonin 3 MG TAB PO SCH (20:51)
[2022-05-13] MEDS: Nitroglycerin 2% Ointment 1 INCH/1 GM Packet TOP SCH (20:53)
[2022-05-13] MEDS: Acetaminophen 325 MG TAB PO PRN (21:01)
[2022-05-13 21:24] LABS: Troponin I 2.055 ng/mL (< 0.028)
[2022-05-14] MEDS: methylPREDNISolone Sod Succ 40 MG VIAL IVP SCH ×4 (01:02→21:17)
[2022-05-14] MEDS: CEFAZOLIN 2 GM in Sodium Chloride 0.9% 100 ML IVPB SCH ×3 (01:03→17:47)
[2022-05-14 01:56] LABS: Troponin I 2.667 ng/mL (< 0.028)
[2022-05-14 05:35] LABS: Anion Gap 14 mmol/L (10-20); BUN (Urea Nitrogen) 15 mg/dL (8.4-25.7); Calc. Creatinine Clearance 38 mL/min (70-130); Calcium 8.3 mg/dL (7.8-10.44); Carbon Dioxide 19 mmol/L (23-31); Chloride 103 mmol/L (98-107); Estimated GFR 46; Glucose 106 mg/dL (80-115); Potassium 3.9 mmol/L (3.5-5.1); Sodium 132 mmol/L (136-145)
[2022-05-14 05:44] LABS: Troponin I 2.785 ng/mL (< 0.028)
[2022-05-14] MEDS: Budesonide 0.5 MG/2 ML NEB NEB SCH ×2 (08:30→19:27)
[2022-05-14] MEDS: ALPRAZolam 0.25 MG TAB PO SCH ×2 (09:32→21:17)
[2022-05-14] MEDS: Ascorbic Acid 500 mg Chewable Tablet PO SCH (09:33)
[2022-05-14] MEDS: Amiodarone 200 MG TAB PO SCH ×2 (09:34→21:17)
[2022-05-14] MEDS: guaiFENesin ER 600 MG TAB PO SCH ×2 (09:34→21:18)
[2022-05-14] MEDS: Carvedilol 6.25 MG TAB PO SCH ×2 (09:35→17:47)
[2022-05-14] MEDS: Aspirin Chewable 81 MG TAB PO SCH (09:35)
[2022-05-14] MEDS: Sodium Chloride 1 GM TAB PO SCH ×2 (09:35→11:50)
[2022-05-14] MEDS: Clopidogrel Bisulfate 75 MG TAB PO SCH (09:35)
[2022-05-14] MEDS: Multivit, Therapeutic 1 TAB PO SCH (09:35)
[2022-05-14] MEDS: Enoxaparin Sodium 60 MG/0.6 ML SYRINGE SC SCH ×2 (09:36→21:18)
[2022-05-14] MEDS: Nitroglycerin 2% Ointment 1 INCH/1 GM Packet TOP SCH ×2 (09:36→21:19)
[2022-05-14] MEDS: Insulin Glargine 30 UNITS/0.3 ML VIAL SC SCH (09:37)
[2022-05-14] MEDS: Rifampin 300 MG CAP PO SCH ×2 (09:40→21:22)
[2022-05-14] MEDS: Fluticasone Propionate Nasal Spray 16 gm Bottle NASAL SCH (09:57)
[2022-05-14] MEDS ORDERED: Furosemide 40 MG/4 ML VIAL SLOW IVP SCH (14:30)
[2022-05-14] MEDS ORDERED: methylPREDNISolone Sod Succ 40 MG VIAL IVP SCH (14:45)
[2022-05-14] MEDS: Melatonin 3 MG TAB PO SCH (21:18)
[2022-05-14] MEDS: HYDROcodone/Acetaminophen 7.5/325 mg Tablet PO PRN (21:22)
[2022-05-15] MEDS: CEFAZOLIN 2 GM in Sodium Chloride 0.9% 100 ML IVPB SCH ×3 (00:05→16:20)
[2022-05-15 03:37] LABS: #Lymphocytes 1.1 thou/uL (1.20-3.40); #Monocytes 0.4 thou/uL (0.11-0.59); #Neutrophils 4.4 thou/uL (1.40-6.50); %Basophils 0.1 % (0.0-1.0); %Eosinophils 0.1 % (0.0-10.0); %Lymphocytes 18.6 % (21.0-51.0); %Monocytes 6.4 % (0.0-10.0); %Neutrophils 74.9 % (42.0-75.0); Hemoglobin 7.8 g/dL (14.0-18.0); Mean Corpuscular HGB CONC 31.8 g/dL (32.0-36.0); Mean Corpuscular Hemoglobin 29.6 pg (27.0-31.0); Mean Corpuscular Volume 93.1 fl (78.0-98.0); Mean Platelet Volume 6.9 fL (7.4-10.4); Platelet Count 390 10x3/uL (130-400); RBC Distribution Width 20.7 % (11.5-14.5); Red Blood Cell (RBC) Count 2.63 mill/uL (4.70-6.10); White Blood Cell (WBC) Count 5.9 10x3/uL (4.8-10.8)
[2022-05-15 03:52] LABS: Anion Gap 15 mmol/L (10-20); BUN (Urea Nitrogen) 16 mg/dL (8.4-25.7); Calc. Creatinine Clearance 33 mL/min (70-130); Calcium 8.3 mg/dL (7.8-10.44); Carbon Dioxide 18 mmol/L (23-31); Chloride 102 mmol/L (98-107); Estimated GFR 39; Glucose 201 mg/dL (80-115); Sodium 131 mmol/L (136-145)
[2022-05-15] MEDS: methylPREDNISolone Sod Succ 40 MG VIAL IVP SCH ×3 (03:57→20:40)
[2022-05-15] MEDS: Budesonide 0.5 MG/2 ML NEB NEB SCH ×2 (06:32→18:43)
[2022-05-15] MEDS ORDERED: Furosemide 40 MG/4 ML VIAL SLOW IVP SCH (09:00)
[2022-05-15] MEDS: Enoxaparin Sodium 60 MG/0.6 ML SYRINGE SC SCH ×2 (09:55→20:39)
[2022-05-15] MEDS: Clopidogrel Bisulfate 75 MG TAB PO SCH (09:55)
[2022-05-15] MEDS: Aspirin Chewable 81 MG TAB PO SCH (09:55)
[2022-05-15] MEDS: Amiodarone 200 MG TAB PO SCH ×2 (09:56→20:37)
[2022-05-15] MEDS: Carvedilol 6.25 MG TAB PO SCH ×2 (09:57→16:18)
[2022-05-15] MEDS: Nitroglycerin 2% Ointment 1 INCH/1 GM Packet TOP SCH ×2 (09:57→20:40)
[2022-05-15] MEDS: Fluticasone Propionate Nasal Spray 16 gm Bottle NASAL SCH (09:57)
[2022-05-15] MEDS: Multivit, Therapeutic 1 TAB PO SCH (09:57)
[2022-05-15] MEDS: ALPRAZolam 0.25 MG TAB PO SCH ×2 (09:57→20:37)
[2022-05-15] MEDS: guaiFENesin ER 600 MG TAB PO SCH ×2 (09:57→20:37)
[2022-05-15] MEDS: Rifampin 300 MG CAP PO SCH ×2 (09:57→20:37)
[2022-05-15] MEDS: Ascorbic Acid 500 mg Chewable Tablet PO SCH (09:58)
[2022-05-15] MEDS: Insulin Glargine 30 UNITS/0.3 ML VIAL SC SCH (09:58)
[2022-05-15] MEDS: HYDROcodone/Acetaminophen 7.5/325 mg Tablet PO PRN (16:18)
[2022-05-15] MEDS: Melatonin 3 MG TAB PO SCH (20:37)
[2022-05-15] MEDS: HumaLOG 300 UNITS/3 ML VIAL SC PRN (20:44)
[2022-05-16] MEDS: CEFAZOLIN 2 GM in Sodium Chloride 0.9% 100 ML IVPB SCH ×3 (00:15→16:39)
[2022-05-16] MEDS: Acetaminophen 325 MG TAB PO PRN ×3 (00:32→21:24)
[2022-05-16 05:04] LABS: Hemoglobin 7.8 g/dL (14.0-18.0); Platelet Count 403 10x3/uL (130-400)
[2022-05-16 05:17] LABS: Anion Gap 12 mmol/L (10-20); BUN (Urea Nitrogen) 17 mg/dL (8.4-25.7); Calc. Creatinine Clearance 34 mL/min (70-130); Calcium 8.3 mg/dL (7.8-10.44); Carbon Dioxide 21 mmol/L (23-31); Chloride 102 mmol/L (98-107); Estimated GFR 41; Glucose 160 mg/dL (80-115); Potassium 3.9 mmol/L (3.5-5.1); Sodium 131 mmol/L (136-145)
[2022-05-16] MEDS: HumaLOG 300 UNITS/3 ML VIAL SC PRN ×2 (05:38→12:50)
[2022-05-16] MEDS: Budesonide 0.5 MG/2 ML NEB NEB SCH ×2 (07:56→19:49)
[2022-05-16] MEDS: Enoxaparin Sodium 60 MG/0.6 ML SYRINGE SC SCH (08:01)
[2022-05-16] MEDS: guaiFENesin ER 600 MG TAB PO SCH ×2 (08:01→21:25)
[2022-05-16] MEDS: Furosemide 20 MG TAB PO SCH (08:01)
[2022-05-16] MEDS: methylPREDNISolone Sod Succ 40 MG VIAL IVP SCH ×2 (08:01→21:25)
[2022-05-16] MEDS: ALPRAZolam 0.25 MG TAB PO SCH ×2 (08:01→21:26)
[2022-05-16] MEDS: Ascorbic Acid 500 mg Chewable Tablet PO SCH (08:02)
[2022-05-16] MEDS: Nitroglycerin 2% Ointment 1 INCH/1 GM Packet TOP SCH ×2 (08:02→21:25)
[2022-05-16] MEDS: Clopidogrel Bisulfate 75 MG TAB PO SCH (08:02)
[2022-05-16] MEDS: Multivit, Therapeutic 1 TAB PO SCH (08:02)
[2022-05-16] MEDS: Amiodarone 200 MG TAB PO SCH ×2 (08:02→21:26)
[2022-05-16] MEDS: Aspirin Chewable 81 MG TAB PO SCH (08:02)
[2022-05-16] MEDS: Carvedilol 6.25 MG TAB PO SCH ×2 (08:02→16:39)
[2022-05-16] MEDS: Fluticasone Propionate Nasal Spray 16 gm Bottle NASAL SCH (08:04)
[2022-05-16] MEDS: Rifampin 300 MG CAP PO SCH ×2 (08:13→21:26)
[2022-05-16] MEDS: Insulin Glargine 30 UNITS/0.3 ML VIAL SC SCH (12:49)
[2022-05-16] MEDS ORDERED: Rivaroxaban 15 MG TAB ONE ×2 (20:00→21:20)
[2022-05-16] MEDS: Melatonin 3 MG TAB PO SCH (21:25)
[2022-05-17] MEDS: CEFAZOLIN 2 GM in Sodium Chloride 0.9% 100 ML IVPB SCH ×3 (00:42→17:21)
[2022-05-17 05:20] LABS: Hemoglobin 8.4 g/dL (14.0-18.0); Platelet Count 422 10x3/uL (130-400)
[2022-05-17 05:47] LABS: Anion Gap 11 mmol/L (10-20); BUN (Urea Nitrogen) 19 mg/dL (8.4-25.7); Calc. Creatinine Clearance 40 mL/min (70-130); Calcium 7.9 mg/dL (7.8-10.44); Carbon Dioxide 22 mmol/L (23-31); Chloride 100 mmol/L (98-107); Estimated GFR 43; Glucose 156 mg/dL (80-115); Sodium 129 mmol/L (136-145)
[2022-05-17] MEDS: HumaLOG 300 UNITS/3 ML VIAL SC PRN ×2 (07:11→17:22)
[2022-05-17] MEDS: Budesonide 0.5 MG/2 ML NEB NEB SCH ×2 (08:09→19:10)
[2022-05-17] MEDS: Nitroglycerin 2% Ointment 1 INCH/1 GM Packet TOP SCH (10:06)
[2022-05-17] MEDS: Amiodarone 200 MG TAB PO SCH ×2 (10:06→21:04)
[2022-05-17] MEDS: ALPRAZolam 0.25 MG TAB PO SCH ×2 (10:06→21:05)
[2022-05-17] MEDS: Fluticasone Propionate Nasal Spray 16 gm Bottle NASAL SCH (10:06)
[2022-05-17] MEDS: methylPREDNISolone Sod Succ 40 MG VIAL IVP SCH ×2 (10:08→21:05)
[2022-05-17] MEDS: guaiFENesin ER 600 MG TAB PO SCH ×2 (10:08→21:05)
[2022-05-17] MEDS: Aspirin Chewable 81 MG TAB PO SCH (10:08)
[2022-05-17] MEDS: Multivit, Therapeutic 1 TAB PO SCH (10:08)
[2022-05-17] MEDS: Furosemide 20 MG TAB PO SCH (10:08)
[2022-05-17] MEDS: Carvedilol 6.25 MG TAB PO SCH ×2 (10:08→17:19)
[2022-05-17] MEDS: Insulin Glargine 30 UNITS/0.3 ML VIAL SC SCH (10:10)
[2022-05-17] MEDS: Clopidogrel Bisulfate 75 MG TAB PO SCH (10:10)
[2022-05-17] MEDS: Acetaminophen 325 MG TAB PO PRN (10:11)
[2022-05-17] MEDS: Ascorbic Acid 500 mg Chewable Tablet PO SCH (10:12)
[2022-05-17] MEDS: Rifampin 300 MG CAP PO SCH ×2 (11:57→21:05)
[2022-05-17] MEDS: Melatonin 3 MG TAB PO SCH (21:05)
[2022-05-17] MEDS: HYDROcodone/Acetaminophen 5/325 mg Tablet PO PRN (21:06)
[2022-05-18] MEDS: CEFAZOLIN 2 GM in Sodium Chloride 0.9% 100 ML IVPB SCH ×3 (00:28→16:40)
[2022-05-18 05:41] LABS: Hemoglobin 8.3 g/dL (14.0-18.0); Platelet Count 424 10x3/uL (130-400)
[2022-05-18] MEDS: HumaLOG 300 UNITS/3 ML VIAL SC PRN ×2 (05:59→12:44)
[2022-05-18] MEDS: Budesonide 0.5 MG/2 ML NEB NEB SCH ×2 (08:10→18:20)
[2022-05-18] MEDS: Carvedilol 6.25 MG TAB PO SCH ×2 (09:38→16:40)
[2022-05-18] MEDS: Clopidogrel Bisulfate 75 MG TAB PO SCH (09:38)
[2022-05-18] MEDS: Multivit, Therapeutic 1 TAB PO SCH (09:38)
[2022-05-18] MEDS: Ascorbic Acid 500 mg Chewable Tablet PO SCH (09:39)
[2022-05-18] MEDS: Insulin Glargine 30 UNITS/0.3 ML VIAL SC SCH (09:39)
[2022-05-18] MEDS: methylPREDNISolone Sod Succ 40 MG VIAL IVP SCH ×2 (09:39→20:55)
[2022-05-18] MEDS: Aspirin Chewable 81 MG TAB PO SCH (09:39)
[2022-05-18] MEDS: Amiodarone 200 MG TAB PO SCH ×2 (09:39→20:54)
[2022-05-18] MEDS: guaiFENesin ER 600 MG TAB PO SCH ×2 (09:39→20:55)
[2022-05-18] MEDS: ALPRAZolam 0.25 MG TAB PO SCH ×2 (09:41→20:55)
[2022-05-18] MEDS: Rifampin 300 MG CAP PO SCH ×2 (09:42→20:55)
[2022-05-18] MEDS: Furosemide 20 MG TAB PO SCH (09:42)
[2022-05-18] MEDS: Fluticasone Propionate Nasal Spray 16 gm Bottle NASAL SCH (09:43)
[2022-05-18] MEDS: HYDROcodone/Acetaminophen 5/325 mg Tablet PO PRN (20:55)
[2022-05-18] MEDS: Melatonin 3 MG TAB PO SCH (20:55)
[2022-05-19] MEDS: CEFAZOLIN 2 GM in Sodium Chloride 0.9% 100 ML IVPB SCH ×2 (01:03→09:16)
[2022-05-19] MEDS: HumaLOG 300 UNITS/3 ML VIAL SC PRN (06:13)
[2022-05-19] MEDS: Budesonide 0.5 MG/2 ML NEB NEB SCH (07:44)
[2022-05-19] MEDS: Amiodarone 200 MG TAB PO SCH (09:21)
[2022-05-19] MEDS: Furosemide 20 MG TAB PO SCH (09:21)
[2022-05-19] MEDS: Multivit, Therapeutic 1 TAB PO SCH (09:21)
[2022-05-19] MEDS: Aspirin Chewable 81 MG TAB PO SCH (09:21)
[2022-05-19] MEDS: Insulin Glargine 30 UNITS/0.3 ML VIAL SC SCH (09:22)
[2022-05-19] MEDS: Carvedilol 6.25 MG TAB PO SCH (09:23)
[2022-05-19] MEDS: Ascorbic Acid 500 mg Chewable Tablet PO SCH (09:23)
[2022-05-19] MEDS: methylPREDNISolone Sod Succ 40 MG VIAL IVP SCH (09:23)
[2022-05-19] MEDS: Clopidogrel Bisulfate 75 MG TAB PO SCH (09:24)
[2022-05-19] MEDS: Rifampin 300 MG CAP PO SCH (09:24)
[2022-05-19] MEDS: guaiFENesin ER 600 MG TAB PO SCH (09:24)
[2022-05-19] MEDS: Fluticasone Propionate Nasal Spray 16 gm Bottle NASAL SCH (09:40)
[2022-05-19] MEDS: ALPRAZolam 0.25 MG TAB PO SCH (09:41)
[2022-05-19 13:48] VITALS: BP 143/74; TEMP 97.1
[2022-05-25] MEDS ORDERED: Cephalexin 250 MG/5 ML Oral Suspension PO SCH (09:00)
== END 2022-05-19 15:49 | disposition hospice, home (50) | DRG 682 ==
LOC: RESEARCH 13:51 → 2NO 18:26 → MSONC 05-11 16:16 → IMCU/EMU 05-13 19:58 → NEURO 05-16 14:27
PROVIDERS: ADMIT Internal Medicine; ATTEND Family Medicine
PROC: 30233N1 Transfusion of Nonautologous Red Blood Cells into Peripheral Vein, Percutaneous Approach (ICD-10-PCS; principal; 2022-05-08)
DX: N17.9 Acute kidney failure, unspecified (principal); E43 Unspecified severe protein-calorie malnutrition; I21.A1 Myocardial infarction type 2; I33.0 Acute and subacute infective endocarditis; G93.41 Metabolic encephalopathy; J96.21 Acute and chronic respiratory failure with hypoxia; E87.1 Hypo-osmolality and hyponatremia; E87.20 Acidosis, unspecified; I48.20 Chronic atrial fibrillation, unspecified; J90 Pleural effusion, not elsewhere classified; R64 Cachexia; R79.89 Other specified abnormal findings of blood chemistry; Z51.5 Encounter for palliative care; Z20.822 Contact with and (suspected) exposure to COVID-19; E11.9 Type 2 diabetes mellitus without complications; E87.6 Hypokalemia; T36.5X5A Adverse effect of aminoglycosides, initial encounter; B95.61 Methicillin susceptible Staphylococcus aureus infection as the cause of diseases classified elsewhere; I11.0 Hypertensive heart disease with heart failure; I50.9 Heart failure, unspecified; R53.1 Weakness; R29.898 Other symptoms and signs involving the musculoskeletal system; F41.9 Anxiety disorder, unspecified; R53.81 Other malaise; D63.8 Anemia in other chronic diseases classified elsewhere; I25.10 Atherosclerotic heart disease of native coronary artery without angina pectoris; Z95.1 Presence of aortocoronary bypass graft; Z95.2 Presence of prosthetic heart valve; Z79.899 Other long term (current) drug therapy; Z79.4 Long term (current) use of insulin; Z79.2 Long term (current) use of antibiotics; Z90.49 Acquired absence of other specified parts of digestive tract; Z87.891 Personal history of nicotine dependence; Z86.73 Personal history of transient ischemic attack (TIA), and cerebral infarction without residual deficits; Z79.82 Long term (current) use of aspirin; Z79.02 Long term (current) use of antithrombotics/antiplatelets; Z68.21 Body mass index [BMI] 21.0-21.9, adult
CPT/HCPCS: 36415; 36416; 36430; 36600; 71045; 74176; 76770; 80048; 80053; 80069; 80202; 81003; 82274; 82553; 82570; 82805; 83605; 83690; 83735; 83880; 84100; 84133; 84300; 84484; 84550; 85014; 85018; 85025; 85049; 86850; 86900; 86901; 87040; 87086; 87811; 93005; 93010; 93306; 96361; 96365; 96367; 97139; J0690; J0692; J1650; J1815; J1940; J2405; J2550; J2920; J3370; J3475; J3480; J3490; J7050; J7070; J7620; J7626; P9016; P9047; U0003; U0005